=== PATIENT | female | born 1945 | race Caucasian/White ===

== ENCOUNTER → 2018-05-15 07:19 | Outpatient (CLI) | payer MEDICARE, SELFPAY ==
[2018-05-15 09:21] LABS: Blood Urea Nitrogen 24 mg/dL (7-17); Calcium 9.8 mg/dL (8.4-10.2); Carbon Dioxide 29 mmol/L (22-32); Chloride 105 mmol/L (98-107); Cholesterol 248 mg/dL (140-199); Estimated Glomerular Filt Rate > 60.0 mL/min (>60); Glucose 89 mg/dL (80-110); HDL Cholesterol 79 mg/dL (40-60); HEMOLYSIS < 15 (0-50); LDL Cholesterol Calculated 152 mg/dL (<100); Potassium 4.4 mmol/L (3.4-5.1); Sodium 143 mmol/L (137-145); Triglycerides 87 mg/dL (35-150)
[2018-05-15 09:52] LABS: Vitamin D 25 Hydroxy (D3) 47.3 ng/mL (30.0-100.0)
[2018-05-15 10:08] LABS: TSH w/ Reflex to FT4 1.78 uIU/mL (0.47-4.68)
== END ==
PROVIDERS: PCP Internal Medicine; Visit Provider Internal Medicine
DX: M85.9 Disorder of bone density and structure, unspecified (principal); E03.9 Hypothyroidism, unspecified; I10 Essential (primary) hypertension; E78.00 Pure hypercholesterolemia, unspecified
CPT/HCPCS: 36415; 80048; 80061; 82306; 84443

== ENCOUNTER → 2018-10-30 11:57 | Outpatient (CLI) | payer MEDICARE, SELFPAY ==
--- NOTE | 2018-10-30 | DI.MG.S_ITS ---
BILATERAL DIGITAL SCREENING MAMMOGRAM 3D/2D WITH CAD: 10/30/2018 CLINICAL: Routine screening. Comparison is made to exams dated: 10/22/2017 mammogram, 09/19/2016 mammogram, 08/23/2015 mammogram, and 07/03/2012 mammogram - [facility]. The tissue of both breasts is heterogeneously dense. This may lower the sensitivity of mammography. Current study was also evaluated with a Computer Aided Detection (CAD) system. There are benign calcifications in both breasts. No significant masses, calcifications, or other findings are seen in either breast. There has been no significant interval change. IMPRESSION: There is no mammographic evidence of malignancy. A 1 year screening mammogram is recommended. This exam was interpreted at Station ID: [id number]. NOTE: For mammograms, a report in lay terms will be sent to the patient. Approximately 15% of breast malignancies will not be visualized mammographically. In the management of a palpable breast mass, a negative mammogram must not discourage biopsy of a clinically suspicious lesion. Electronically Signed By: Fito becker/[email or web address]:10/30/2018 13:39:34 letter sent: Normal Exam ACR BI-RADS Category 2: Benign Finding(s) 3342F
== END ==
PROVIDERS: PCP Internal Medicine; Visit Provider Internal Medicine
DX: Z12.31 Encounter for screening mammogram for malignant neoplasm of breast (principal)
CPT/HCPCS: 77063; 77067

== ENCOUNTER → 2019-07-25 06:41 | Outpatient (CLI) | payer MEDICARE, SELFPAY ==
[2019-07-25 08:31] LABS: BUN Creatinine Ratio 25.6 (6-22); Blood Urea Nitrogen 23 mg/dL (7-17); Calcium 9.7 mg/dL (8.4-10.2); Carbon Dioxide 28 mmol/L (22-32); Chloride 107 mmol/L (98-107); Cholesterol 242 mg/dL (140-199); Estimated Glomerular Filt Rate > 60.0 mL/min (>60); Glucose 90 mg/dL (80-110); HDL Cholesterol 74 mg/dL (40-60); HEMOLYSIS < 15 (0-50); LDL Cholesterol Calculated 147 mg/dL (<100); Potassium 4.2 mmol/L (3.4-5.1); Sodium 142 mmol/L (137-145); Triglycerides 107 mg/dL (35-150)
[2019-07-25 09:38] LABS: TSH w/ Reflex to FT4 1.62 uIU/mL (0.47-4.68)
== END ==
PROVIDERS: PCP Internal Medicine; Visit Provider Internal Medicine
DX: E78.00 Pure hypercholesterolemia, unspecified (principal); E03.9 Hypothyroidism, unspecified; I10 Essential (primary) hypertension
CPT/HCPCS: 36415; 80048; 80061; 84443

== ENCOUNTER → 2019-07-25 06:45 | Outpatient (CLI) | payer MEDICARE, SELFPAY | PROVIDERS: PCP Internal Medicine; Visit Provider Internal Medicine | DX: M85.9 Disorder of bone density and structure, unspecified (principal); Z53.9 Procedure and treatment not carried out, unspecified reason ==

== ENCOUNTER → 2020-11-20 10:29 | Outpatient (CLI) | payer OTHER, SELFPAY ==
--- NOTE | 2020-11-20 | DI.MG.S_ITS ---
BILATERAL DIGITAL SCREENING MAMMOGRAM 3D/2D WITH CAD: 11/20/2020 CLINICAL: Routine screening. Comparison is made to exams dated: 10/30/2018 mammogram, 10/22/2017 mammogram, 09/19/2016 mammogram, and 08/23/2015 mammogram - [facility]. The tissue of both breasts is heterogeneously dense. This may lower the sensitivity of mammography. Current study was also evaluated with a Computer Aided Detection (CAD) system. There are benign calcifications in both breasts. There also are benign vascular calcifications in both breasts. No significant masses, calcifications, or other findings are seen in either breast. There has been no significant interval change. IMPRESSION: BENIGN There is no mammographic evidence of malignancy. A 1 year screening mammogram is recommended. This exam was interpreted at Station ID: [id number]. NOTE: For mammograms, a report in lay terms will be sent to the patient. Approximately 15% of breast malignancies will not be visualized mammographically. In the management of a palpable breast mass, a negative mammogram must not discourage biopsy of a clinically suspicious lesion. Electronically Signed By: Elder [email or web address]/[email or web address]:11/22/2020 08:25:32 letter sent: Normal Exam ACR BI-RADS Category 2: Benign Finding(s) 3342F
== END ==
PROVIDERS: PCP Internal Medicine; Referring Provider Internal Medicine; Visit Provider Internal Medicine
DX: Z12.31 Encounter for screening mammogram for malignant neoplasm of breast (principal)
CPT/HCPCS: 77063; 77067

== ENCOUNTER → 2021-03-23 11:05 | Outpatient (CLI) | payer OTHER, SELFPAY | PROVIDERS: PCP Student in an Organized Health Care Education/Training Program; Referring Provider Student in an Organized Health Care Education/Training Program; Visit Provider Student in an Organized Health Care Education/Training Program | DX: Z78.0 Asymptomatic menopausal state (principal); M85.852 Other specified disorders of bone density and structure, left thigh; E07.9 Disorder of thyroid, unspecified; Z90.722 Acquired absence of ovaries, bilateral | CPT/HCPCS: 77080 ==

== ENCOUNTER → 2021-10-21 15:35 | Outpatient (CLI) | payer OTHER, SELFPAY ==
--- NOTE | 2021-10-21 15:37 | DI.MRI.S_ITS ---
PROCEDURE: MR KNEE RT WO CON INDICATIONS: Pain in right knee TECHNIQUE: Noncontrast sagittal PD fast spin echo and T2 fast spin echo with fat saturation, sagittal 3-D FLASH with fat saturation; coronal T1 spin echo and PD fast spin echo with fat saturation, and axial PD fast spin echo with fat saturation through the knee. COMPARISON: [facility], MR, KNEE WITHOUT CONTRAST, 04/16/2015, 13:01. FINDINGS: Image quality: Excellent. Menisci: Medial extrusion of the medial meniscus. Radial tearing of the posterior horn medial meniscus at the meniscal root ligament insertion site. Linear oblique high T2 signal intensity traverses the medial meniscal body, demonstrating inferior articular surface extension. Lateral meniscus is intact. Cruciate ligaments: The anterior and posterior cruciate ligaments appear intact. Medial structures: The medial collateral ligament appears intact. Visualized portions of the pes anserinus tendons appear normal. No abnormal bursal fluid. Lateral structures: The lateral collateral ligament, long and short heads of the biceps femoris tendon appear intact. The popliteus tendon appears normal. Iliotibial band appears normal. Anterior structures: The quadriceps and patellar tendons appear intact. Patellar alignment is normal. No femoral trochlear dysplasia or ventral trochlear prominence. No edema in the infrapatellar fat pad. Bones and cartilage: No bone marrow contusions or fractures. Moderate tricompartmental periarticular osteophyte formation. Severe articular cartilage loss diffusely overlies the weight-bearing aspects of the medial femoral condyle and medial tibial plateau. Mild articular cartilage loss diffusely overlies the weight-bearing aspects of the lateral femoral condyle and lateral tibial plateau. Moderate articular cartilage loss overlies the medial and lateral patellar facets. Joint space: There is a small knee joint effusion and a small Pascal's cyst. Normal appearing synovial plicae are incidentally noted. IMPRESSION: 1. Tricompartmental osteoarthritis with associated articular cartilage loss. 2. Medial meniscal tearing. 3. Knee joint effusion and Pascal's cyst. Dictated by: April Casey M.D. on 10/21/2021 at 16:33 Approved by: April Casey M.D. on 10/21/2021 at 16:36
== END ==
PROVIDERS: PCP Student in an Organized Health Care Education/Training Program; Referring Provider Orthopaedic Surgery; Visit Provider Orthopaedic Surgery
DX: M25.561 Pain in right knee (principal); M17.11 Unilateral primary osteoarthritis, right knee; S83.241A Other tear of medial meniscus, current injury, right knee, initial encounter; M25.461 Effusion, right knee; M71.21 Synovial cyst of popliteal space [Baker], right knee
CPT/HCPCS: 73721

== ENCOUNTER → 2022-01-25 11:49 | Outpatient (CLI) | payer OTHER, SELFPAY ==
--- NOTE | 2022-01-25 11:51 | DI.RAD.S_ITS ---
PROCEDURE: XR LUMBAR SPINE MIN 4V INDICATIONS: LBP with left leg pain TECHNIQUE: 5 views of the lumbar spine were acquired, including bilateral oblique views. COMPARISON: None. FINDINGS: Bones: 5 nonrib-bearing vertebrae are present. There is 4 mm retrolisthesis of L1 on L2 and 4 mm anterolisthesis of L4 on L5. [id number] levoscoliosis of thoracolumbar spine centered at L2 level is seen. Degenerative endplate changes and bilateral facet arthrosis throughout lumbar spine is seen. No vertebral body compression fractures. No suspicious bony lesions. Soft tissues: Overlying bowel gas pattern is normal. No suspicious soft tissue calcifications. Oblique images: No pars defects. IMPRESSION: No acute lumbar spine compression fracture. Grade 1 spondylolisthesis at L1-2 and L4-5 levels as above. No gross pars defect. Degenerative disc disease throughout lumbar spine. Mild to moderate levoscoliosis of thoracolumbar spine centered at L2 level. Dictated by: Clyde Villanueva M.D. on 01/25/2022 at 14:13 Approved by: Clyde Villanueva M.D. on 01/25/2022 at 14:15
== END ==
PROVIDERS: PCP Student in an Organized Health Care Education/Training Program; Referring Provider Physical Medicine & Rehabilitation; Visit Provider Physical Medicine & Rehabilitation
DX: M54.16 Radiculopathy, lumbar region (principal); M70.62 Trochanteric bursitis, left hip; M43.16 Spondylolisthesis, lumbar region; M51.36 Other intervertebral disc degeneration, lumbar region; M41.86 Other forms of scoliosis, lumbar region
CPT/HCPCS: 72110; 99213

== ENCOUNTER 2022-02-16 19:07 | Emergency (ER) | payer OTHER, SELFPAY ==
[2022-02-16] VITALS (8 sets, daily range): BP systolic 119–153; BP diastolic 58–70; PULSE 75–87; RESP 16–22; TEMP 36.5–37.1; O2SAT 94–99; BMI 21.2
--- NOTE | 2022-02-16 19:34 | DI.RAD.S_ITS ---
PROCEDURE: XR CHEST 1V INDICATIONS: chest pain TECHNIQUE: One view of the chest was acquired. COMPARISON: None. FINDINGS: Surgical changes and devices: None. Lungs and pleura: Lungs are clear. There is hyperinflation of the lungs with mild flattening of the hemidiaphragms suggestive of COPD. No pleural effusions or pneumothorax. Mediastinum: Mediastinal contours appear normal. Heart size is normal. Bones and chest wall: No suspicious bony lesions. Overlying soft tissues appear unremarkable. IMPRESSION: 1. No acute cardiopulmonary disease. 2. Findings suggestive of COPD. Dictated by: Jerel Yusuf M.D. on 02/16/2022 at 21:10 Approved by: Jerel Yusuf M.D. on 02/16/2022 at 21:12
[2022-02-16 20:03] LABS: Add Manual Diff / Slide Review NO; Basophils Absolute Auto 100 /uL (0-100); Basophils Percent Auto 0.8 % (0-2); Eosinophils Absolute Auto 200 /uL (0-450); Eosinophils Percent Auto 1.2 % (2-4); Hemoglobin 10.8 g/dL (12.0-16.0); Lymphocytes Absolute Auto 1800 /uL (1100-4500); Mean Corpuscular HGB Conc 33.8 % (30-36); Mean Corpuscular Hemoglobin 33.6 PG (26-34); Mean Corpuscular Volume 99.3 fL (80-100); Monocytes Absolute Auto 900 /uL (0-900); Monocytes Percent Auto 6.9 % (3-14); Neutrophils Absolute Auto 9900 /uL (1500-7000); Neutrophils Percent Auto 77.1 % (50-75); Platelet Count 282 X10^3/uL (150-400); Red Blood Cell Count 3.22 X10^6/uL (4.0-5.2); Red Cell Distribution Width 13.5 % (11.6-14.8); White Blood Cell Count 12.8 X10^3/uL (4.5-11.0)
[2022-02-16 20:08] LABS: Alanine Aminotransferase 22 IU/L (<35); Albumin Globulin Ratio 1.7 (1.0-2.8); Alkaline Phosphatase 61 U/L (38-126); Aspartate Aminotransferase 26 IU/L (14-36); BUN Creatinine Ratio 47.8 (6-22); Bilirubin Total 0.4 mg/dL (0.2-1.3); Blood Urea Nitrogen 44 mg/dL (7-17); Calcium 10.1 mg/dL (8.4-10.2); Carbon Dioxide 29 mmol/L (22-32); Chloride 104 mmol/L (98-107); Creatine Kinase 82 U/L (30-135); Estimated Glomerular Filt Rate > 60 mL/min (>60); Globulin 2.4 g/dL (1.7-4.1); Glucose 136 mg/dL (80-110); HEMOLYSIS < 15 (0-50); Lipase 118 U/L (23-300); Sodium 138 mmol/L (137-145); Total Protein 6.4 g/dL (6.3-8.2)
--- NOTE | 2022-02-16 20:14 | DI.CT.S_ITS ---
PROCEDURE: CT HEAD/BRAIN WO CON INDICATIONS: syncope vs seizure TECHNIQUE: Noncontrast 4.5 mm thick angled axial sections acquired from the foramen magnum to the vertex, with coronal and sagittal reformats. For radiation dose reduction, the following was used: automated exposure control, adjustment of mA and/or kV according to patient size. COMPARISON: None. FINDINGS: Image quality: Excellent. CSF spaces: Basal cisterns are patent. No extra-axial fluid collections. There is mild to moderate cerebral volume loss, with resultant ventricular and sulcal prominence as well as prominence of the frontal extra-axial spaces. Brain: No intracranial hemorrhage, mass, or mass effect. There are subcortical, periventricular and deep white matter hypodensities consistent with mild chronic small vessel ischemic changes. The bragg-white matter junction appears preserved. There is intracranial internal carotid artery atherosclerosis. Skull and face: Calvarium and visualized facial bones appear intact, without suspicious lesions. Sinuses: Visualized sinuses and mastoids are clear. IMPRESSION: 1. No acute intracranial abnormality. 2. Mild to moderate cerebral volume loss and mild chronic white matter small vessel ischemic changes. Dictated by: Jerel Yusuf M.D. on 02/16/2022 at 20:59 Approved by: Jerel Yusuf M.D. on 02/16/2022 at 21:00
--- NOTE | 2022-02-16 20:16 | ED_ITS ---
HPI - Syncope General Chief Complaint: Syncope Stated Complaint: thinks having a stroke Time Seen by Provider: 02/16/22 19:52 Source: patient and family Mode of arrival: Wheelchair Limitations: no limitations History of Present Illness HPI narrative: This is a 76-year-old female history of hypothyroidism, dyslipidemia and hypertension who presents with feeling unwell today and an episode of altered mental status. Patient states she just was not feeling well today she would recently been started on meloxicam she stopped this she took a Gas-X and Neda- [place] because she is feeling nauseated. She states they were returning with her and their private vehicle while driving back from [place] patient felt very warm, she was not diaphoretic and she had an episode where she is described as having her right arm kind of go upwards and her left arm sitting down her states she was stiff for a 2nd and then sort of lost tone and consciousness he states a couple seconds of the stiffness and then loss of tone for about 1 minute. Patient states that she was slightly confused immediately afterwards but quickly improved. She describes her vision has been blurry she does state that there was loss of time for about a minute or 2 that she does not recall. Episode occurred around 1830 this evening. She denies any headache, no numbness, tingling or weakness, no facial droop, no speech changes. No fevers or chills. She has not had any vomiting today. No chest pain or pressure, no shortness of breath. She would discomfort across her upper abdomen which resolved. She denies diarrhea constipation. No urinary symptoms. No bowel or bladder incontinence. She has not had similar symptoms in the past. She takes medication for her thyroid, hypertension dyslipidemia. She had a hysterectomy in 1998. Allergic to sulfa. No tobacco, she drinks 1 martini a small amount of wine nightly, no illicit. She lives with her . She denies any cardiac, neurologic, seizure or arrhythmia issues in her family. Primary care was Dr. Alice Marshall. Related Data Home Medications Medication Instructions Recorded Confirmed cholecalciferol (vitamin D3) 1 tab PO BID 04/18/21 10/19/21 levothyroxine 88 mcg tablet 88 mcg PO DAILY 04/18/21 10/19/21 lisinopril 5 mg tablet 5 mg PO DAILY 04/18/21 10/19/21 omega-3 fatty acids [Fish Oil 1 cap PO DAILY 04/18/21 10/19/21 Concentrate] ibuprofen 200 mg capsule 200 mg PO Q6H PRN 10/19/21 01/25/22 atorvastatin 20 mg tablet 20 mg PO BEDTIME 01/25/22 Previous Rx's Medication Instructions Recorded meloxicam 15 mg tablet 15 mg PO DAILY #30 tabs 01/25/22 cephalexin 500 mg capsule 500 mg PO BID #10 caps 02/16/22 Allergies Allergy/AdvReac Type Severity Reaction Status Date / Time adhesive [ADHESIVE] Allergy Unknown skin Verified 01/25/22 09:08 becomes red and itchy Sulfa (Sulfonamide Allergy Unknown rash,ithching, Verified 01/25/22 09:08 Antibiotics) redness [SULFA (SULFONAMIDE ANTIBIOTICS)] Review of Systems Review of Systems ROS Unobtainable: All systems reviewed & are unremarkable except as noted in HPI and below Patient History Medical History Lumbar back pain with radiculopathy affecting left lower extremity Trochanteric bursitis of left hip Surgical History H/O section H/O right wrist surgery Social History number of children: 2 Smoking Status: Never smoker alcohol intake: current Smoking Status: Never smoker Substance Use Type: does not use Exam Narrative Exam Narrative: GEN: well nourished, well appearing female, alert and oriented x 3, patient appears to be in no acute distress. HEENT: Atraumatic, pupils are equal round reactive to light, extraocular movements are intact, nares are clear. Throat is clear without any exudates, erythema, tonsillar enlargement or uvular deviation mild, no facial droop. HEART: Regular rate and rhythm without murmur, clicks, rubs. No carotid bruits, pulses are equal in upper and lower extremities LUNGS:Lungs clear to auscultation, no wheezes, rales, crackles, chest moves symmetrically ABD:bowel sounds normal, soft, non-tender, no guarding, rebound, rigidity, no masses noted, no hepatosplenomegaly :No CVA tenderness MSCL: Non-tender, no muscle atrophy, muscles strength 5/5 upper and lower extremities, full range of motion, normal gait NEURO:CN 2-12 intact, sensation normal, reflexes 2/4 upper and lower extremities. finger nose finger test normal, heel stevens test normal, romberg normal SKIN: No rash, erythema or other skin changes Initial Vital Signs Initial Vital Signs: Vital Signs Pulse Rate 75 02/16/22 19:17 Respiratory Rate 21 02/16/22 19:17 Pulse Oximetry 96 02/16/22 19:17 Scores NIH Stroke Scale Level of Conciousness: Alert, keenly responsive Ask month/age: Answers both questions correctly. Open/close eyes, close hand: Performs both tasks correctly Best gaze horizontal: Normal Visual simons: No visual loss Facial palsy: Normal symetrical movement Left arm drift: No drift for full 10 sec Right arm drift: No drift for full 10 sec Left leg drift: No drift for full 5 sec Right leg drift: No drift for full 5 sec Limb ataxia: Absent Sensory on face/arms/legs: Normal, no sensory loss Best language: No aphasia, normal Dysarthria: Normal Extinction or inattention: No abnormality Total NIH Stroke scale score: 0 Course Orders Ordered: Discontinued Medications Sodium Chloride (Normal Saline 0.9%) 1,000 mls @ 1,000 mls/hr IV BOLUS ONE Stop: 02/16/22 21:13 Last Infusion: 02/16/22 22:18 Dose: 0 mls/hr Documented By: Admin: 02/16/22 20:39 Dose: 1,000 mls/hr Documented By: DESIRAE Reevaluation(s) Reevaluation #1: Recheck, patient and I reviewed findings from today. Plan for follow up ou tpatient for work up. Patient feels back at her normal state. Vital Signs Vital signs: Vital Signs - 8 hr 02/16/22 19:23 Temperature 97.7 F Pulse Rate 87 Respiratory Rate 17 Blood Pressure 137/62 Pulse Oximetry 98 Oxygen Delivery Method Room Air MDM - Syncope Lab Data Result diagrams: 02/16/22 19:49 02/16/22 19:49 Labs: Lab Results 02/16/22 02/16/22 02/16/22 Range/Units 19:49 19:49 19:49 WBC 12.8 H (4.5-11.0) X10^3/uL RBC 3.22 L (4.0-5.2) X10^6/uL Hgb 10.8 L (12.0-16.0) g/dL Hct 32.0 L (36-46) % MCV 99.3 (80-100) fL MCH 33.6 (26-34) PG MCHC 33.8 (30-36) % RDW 13.5 (11.6-14.8) % Plt Count 282 (150-400) X10^3/uL Neut % (Auto) 77.1 H (50-75) % Lymph % (Auto) 14.0 L (25-40) % Mohave % (Auto) 6.9 (3-14) % Eos % (Auto) 1.2 L (2-4) % Baso % (Auto) 0.8 (0-2) % Neut # (Auto) 9900 H (1158-7835) /uL Lymph # (Auto) 1800 (5148-8487) /uL Mohave # (Auto) 900 (0-900) /uL Eos # (Auto) 200 (0-450) /uL Baso # (Auto) 100 (0-100) /uL Sodium 138 (137-145) mmol/L Potassium 4.0 (3.4-5.1) mmol/L Chloride 104 (98-107) mmol/L Carbon Dioxide 29 (22-32) mmol/L BUN 44 H (7-17) mg/dL Creatinine 0.92 (0.52-1.04) mg/dL Estimated GFR > 60 (>60) mL/min BUN/Creatinine Ratio 47.8 H (6-22) Glucose 136 H (80-110) mg/dL Calcium 10.1 (8.4-10.2) mg/dL Magnesium 2.0 (1.6-2.3) mg/dL Total Bilirubin 0.4 (0.2-1.3) mg/dL AST 26 (14-36) IU/L ALT 22 (<35) IU/L Alkaline Phosphatase 61 (38-126) U/L Total Creatine Kinase 82 (30-135) U/L CK-MB (CK-2) TNP CK-MB (CK-2) Rel Index TNP Troponin I < 0.012 (0.01-0.034) ng/mL Total Protein 6.4 (6.3-8.2) g/dL Albumin 4.0 (3.5-5.0) g/dL Globulin 2.4 (1.7-4.1) g/dL Albumin/Globulin Ratio 1.7 (1.0-2.8) Lipase 118 (23-300) U/L TSH 1.58 (0.47-4.68) uIU/mL Prolactin (3.0-18.6) ng/mL Urine Color Urine Appearance Urine pH (4.5-8.0) Ur Specific Hubbard (1.000-1.035) Urine Protein (Negative) Urine Glucose (UA) (Negative) g/dL Urine Ketones (NEGATIVE) Urine Occult Blood (Negative) Urine Nitrate (Negative) Urine Bilirubin (NEGATIVE) Urine Urobilinogen (0.2) E.U./dL Ur Leukocyte Esterase (NEGATIVE) Urine RBC (0-5/HPF) Urine WBC (0-5/HPF) Amorphous Sediment Urine Bacteria (None) Ur Culture Indicated? U Opiates 300ng/mL cut (Negative) Ur Oxycodone Screen (Negative) Urine Methadone Screen (Negative) Ur Barbiturates Screen (Negative) U Tricyclic Antidepress (Negative) Ur Phencyclidine Scrn (Negative) Ur Amphetamines Screen (Negative) U Methamphetamines Scrn (Negative) Ur MDMA Scrn (Ecstasy) (Negative) U Benzodiazepines Scrn (Negative) Urine Cocaine Screen (Negative) U Marijuana (THC) Screen (Negative) Ethyl Alcohol ( - 10) mg/dL SARS-CoV-2 (PCR) (Negative) 02/16/22 02/16/22 02/16/22 Range/Units 19:49 19:49 19:57 WBC (4.5-11.0) X10^3/uL RBC (4.0-5.2) X10^6/uL Hgb (12.0-16.0) g/dL Hct (36-46) % MCV (80-100) fL MCH (26-34) PG MCHC (30-36) % RDW (11.6-14.8) % Plt Count (150-400) X10^3/uL Neut % (Auto) (50-75) % Lymph % (Auto) (25-40) % Mohave % (Auto) (3-14) % Eos % (Auto) (2-4) % Baso % (Auto) (0-2) % Neut # (Auto) (8381-2463) /uL Lymph # (Auto) (3585-1924) /uL Mohave # (Auto) (0-900) /uL Eos # (Auto) (0-450) /uL Baso # (Auto) (0-100) /uL Sodium (137-145) mmol/L Potassium (3.4-5.1) mmol/L Chloride (98-107) mmol/L Carbon Dioxide (22-32) mmol/L BUN (7-17) mg/dL Creatinine (0.52-1.04) mg/dL Estimated GFR (>60) mL/min BUN/Creatinine Ratio (6-22) Glucose (80-110) mg/dL Calcium (8.4-10.2) mg/dL Magnesium (1.6-2.3) mg/dL Total Bilirubin (0.2-1.3) mg/dL AST (14-36) IU/L ALT (<35) IU/L Alkaline Phosphatase (38-126) U/L Total Creatine Kinase (30-135) U/L CK-MB (CK-2) CK-MB (CK-2) Rel Index Troponin I (0.01-0.034) ng/mL Total Protein (6.3-8.2) g/dL Albumin (3.5-5.0) g/dL Globulin (1.7-4.1) g/dL Albumin/Globulin Ratio (1.0-2.8) Lipase (23-300) U/L TSH (0.47-4.68) uIU/mL Prolactin 41.2 H (3.0-18.6) ng/mL Urine Color Urine Appearance Urine pH (4.5-8.0) Ur Specific Hubbard (1.000-1.035) Urine Protein (Negative) Urine Glucose (UA) (Negative) g/dL Urine Ketones (NEGATIVE) Urine Occult Blood (Negative) Urine Nitrate (Negative) Urine Bilirubin (NEGATIVE) Urine Urobilinogen (0.2) E.U./dL Ur Leukocyte Esterase (NEGATIVE) Urine RBC (0-5/HPF) Urine WBC (0-5/HPF) Amorphous Sediment Urine Bacteria (None) Ur Culture Indicated? U Opiates 300ng/mL cut (Negative) Ur Oxycodone Screen (Negative) Urine Methadone Screen (Negative) Ur Barbiturates Screen (Negative) U Tricyclic Antidepress (Negative) Ur Phencyclidine Scrn (Negative) Ur Amphetamines Screen (Negative) U Methamphetamines Scrn (Negative) Ur MDMA Scrn (Ecstasy) (Negative) U Benzodiazepines Scrn (Negative) Urine Cocaine Screen (Negative) U Marijuana (THC) Screen (Negative) Ethyl Alcohol < 10 ( - 10) mg/dL SARS-CoV-2 (PCR) Negative (Negative) 02/16/22 02/16/22 Range/Units 22:00 22:00 WBC (4.5-11.0) X10^3/uL RBC (4.0-5.2) X10^6/uL Hgb (12.0-16.0) g/dL Hct (36-46) % MCV (80-100) fL MCH (26-34) PG MCHC (30-36) % RDW (11.6-14.8) % Plt Count (150-400) X10^3/uL Neut % (Auto) (50-75) % Lymph % (Auto) (25-40) % Mohave % (Auto) (3-14) % Eos % (Auto) (2-4) % Baso % (Auto) (0-2) % Neut # (Auto) (7821-7175) /uL Lymph # (Auto) (1283-2950) /uL Mohave # (Auto) (0-900) /uL Eos # (Auto) (0-450) /uL Baso # (Auto) (0-100) /uL Sodium (137-145) mmol/L Potassium (3.4-5.1) mmol/L Chloride (98-107) mmol/L Carbon Dioxide (22-32) mmol/L BUN (7-17) mg/dL Creatinine (0.52-1.04) mg/dL Estimated GFR (>60) mL/min BUN/Creatinine Ratio (6-22) Glucose (80-110) mg/dL Calcium (8.4-10.2) mg/dL Magnesium (1.6-2.3) mg/dL Total Bilirubin (0.2-1.3) mg/dL AST (14-36) IU/L ALT (<35) IU/L Alkaline Phosphatase (38-126) U/L Total Creatine Kinase (30-135) U/L CK-MB (CK-2) CK-MB (CK-2) Rel Index Troponin I (0.01-0.034) ng/mL Total Protein (6.3-8.2) g/dL Albumin (3.5-5.0) g/dL Globulin (1.7-4.1) g/dL Albumin/Globulin Ratio (1.0-2.8) Lipase (23-300) U/L TSH (0.47-4.68) uIU/mL Prolactin (3.0-18.6) ng/mL Urine Color Yellow Urine Appearance Clear Urine pH 7.0 (4.5-8.0) Ur Specific Hubbard 1.010 (1.000-1.035) Urine Protein Negative (Negative) Urine Glucose (UA) Negative (Negative) g/dL Urine Ketones Trace H (NEGATIVE) Urine Occult Blood Trace-intact (Negative) Urine Nitrate Negative (Negative) Urine Bilirubin Negative (NEGATIVE) Urine Urobilinogen 0.2 (0.2) E.U./dL Ur Leukocyte Esterase 2+ H (NEGATIVE) Urine RBC 1-5/hpf (0-5/HPF) Urine WBC 5-10/hpf H (0-5/HPF) Amorphous Sediment 2+ Urine Bacteria Occasional (0-1) (None) Ur Culture Indicated? Specimen cultured U Opiates 300ng/mL cut Negative (Negative) Ur Oxycodone Screen Negative (Negative) Urine Methadone Screen Negative (Negative) Ur Barbiturates Screen Negative (Negative) U Tricyclic Antidepress Negative (Negative) Ur Phencyclidine Scrn Negative (Negative) Ur Amphetamines Screen Negative (Negative) U Methamphetamines Scrn Negative (Negative) Ur MDMA Scrn (Ecstasy) Negative (Negative) U Benzodiazepines Scrn Negative (Negative) Urine Cocaine Screen Negative (Negative) U Marijuana (THC) Screen Negative (Negative) Ethyl Alcohol ( - 10) mg/dL SARS-CoV-2 (PCR) (Negative) Imaging Data CT scan - head: Radiologist's Impression: Nicolle Mcnair V??76??F??1945 ? Allergy/Adv: adhesive, Sulfa (Sulfonamide Antibiotics) (More??) Close Head CT (Signed) Jerel Yusuf - 02/16/22 Chest X-Ray (Signed) Jerel Yusuf - 02/16/22 Lumbar Spine X-Ray (Signed) Clyde Villanueva - 01/25/22 Knee MRI (Signed) April Casey - 10/21/21 Bone Densitometry 03/23/21 Mammogram Screening (Signed) Lionel Kirklandwn - 11/20/20 Mammogram Screening (Signed) Fito Joseph - 10/30/18 Launch?[place] [address] CT Scan Report Signed Patient: Nicolle Mcnair V MR#: [id number] : 1945 Acct:[id number] Age/Sex: 76 / F Date of Service: 02/16/22 Loc: ED Accession Number: [id number] ?? Procedure: CT head/brain wo con Ordering Provider: Hilda Muniz D.O. PROCEDURE:? CT HEAD/BRAIN WO CON ? INDICATIONS:? syncope vs seizure ? TECHNIQUE:? Noncontrast 4.5 mm thick angled axial sections acquired from the foramen magnum to the vertex, with coronal and sagittal reformats.? For radiation dose reduction, the following was used:? automated exposure control, adjustment of mA and/or kV according to patient size.? ? COMPARISON:? None. ? FINDINGS:? Image quality:? Excellent.? ? CSF spaces:? Basal cisterns are patent.? No extra-axial fluid collections.? There is mild to moderate cerebral volume loss, with resultant ventricular and sulcal prominence as well as prominence of the frontal extra-axial spaces.? ? Brain:? No intracranial hemorrhage, mass, or mass effect.? There are subcortical, periventricular and deep white matter hypodensities consistent with mild chronic small vessel ischemic changes.? The bragg-white matter junction appears preserved.? There is intracranial internal carotid artery atherosclerosis.? ? Skull and face:? Calvarium and visualized facial bones appear intact, without suspicious lesions.? ? Sinuses:? Visualized sinuses and mastoids are clear.? ? IMPRESSION:? ? 1. No acute intracranial abnormality. ? 2. Mild to moderate cerebral volume loss and mild chronic white matter small vessel ischemic changes.? ? ? Dictated by: Jerel Yusuf M.D. on 02/16/2022 at 20:59 ? ? Approved by: Jerel Yusuf M.D. on 02/16/2022 at 21:00?? Chest x-ray: Radiologist's Impression: Close Head CT (Signed) Jerel Yusuf - 02/16/22 Chest X-Ray (Signed) Jerel Yusuf - 02/16/22 Lumbar Spine X-Ray (Signed) Clyde Villanueva - 01/25/22 Knee MRI (Signed) April Casey - 10/21/21 Bone Densitometry 03/23/21 Mammogram Screening (Signed) Elder Kirkland - 11/20/20 Mammogram Screening (Signed) Fito Joseph - 10/30/18 [place] [address] XRay Report Signed Patient: Nicolle Mcnair V MR#: [id number] : 1945 Acct:[id number] Age/Sex: 76 / F Date of Service: 02/16/22 Loc: ED Accession Number: [id number] ?? Procedure: XR chest 1V Ordering Provider: Hilda Muniz D.O. PROCEDURE:? XR CHEST 1V ? INDICATIONS:? chest pain ? TECHNIQUE:? One view of the chest was acquired.? ? COMPARISON:? None. ? FINDINGS:? ? Surgical changes and devices:? None.? ? Lungs and pleura:? Lungs are clear. There is hyperinflation of the lungs with mild flattening of the hemidiaphragms suggestive of COPD. ? No pleural effusions or pneumothorax.? ? Mediastinum:? Mediastinal contours appear normal.? Heart size is normal.? ? Bones and chest wall:? No suspicious bony lesions.? Overlying soft tissues appear unremarkable.? ? IMPRESSION:? ? 1. No acute cardiopulmonary disease. ? 2. Findings suggestive of COPD.? ? ? Dictated by: Jerel Yusuf M.D. on 02/16/2022 at 21:10 ? ? Approved by: Jerel Yusuf M.D. on 02/16/2022 at 21:12?? ECG Data Attestation: I personally reviewed and interpreted this ECG as follows: Interpretation: Sinus rhythm with sinus arrhythmia rate of 70 2p are 204 QRS is [address]TC [address] No acute [address] elevation depression noted. Patient does not have priors for comparison. MDM Narrative Medical decision making narrative: This is a 76-year-old female who comes with generally feeling unwell, episode of syncope versus possible seizure she according to her extend her arm was defer come a 2nd and then sort of lost tone. Patient does appear to be dehydrated by her labs her BUN is elevated but renal function, electrolytes, troponin are all normal. Head CT was obtained is negative, chest x-ray shows no acute change. Patient does have a leukocytosis of 12, anemia of 10 her prior from 2017 and was 13. Patient's vitals have been appropriate here. She is COVID negative and does have an elevated prolactin. At this time recommend patient follow-up patient with no driving and seizure precautions until cleared by her physician and potentially Neurology after additional workup. She does have an elevated BUN and ketones on her urine for reflecting possible d ehydration but no bump in her creatinine. She has leuks in her urine no active symptoms but was covered with an antibiotic. Discussed with patient I suspect more syncopal episode over seizure-like activity but seizure precautions were given and recommended to follow-up. Patient and are both comfortable with this plan. Reviewed seizure precautions with them verbally as well. Discharge Plan Departure Patient Disposition: Home Clinical Impression: Syncope, Acute UTI Instructions: DI for Syncope in Adults (Fainting) Activity Restrictions/Additional Instructions: Follow up with your physician for recheck this week. I would not recommend driving until you follow up with your physician. I suspect that you had more of a syncopal episode today secondary to dehydration and infection in your urine but some of the symptoms described could potentially be seizure and they may have you follow-up with a neurologist. Your labs do reflect dehydration today, your urine is also suspicious for infection and you have been prescribed an antibiotic. Make sure you are hydrating regularly. Your prescription was sent to [facility] in [place]. You may continue home medications as prescribed. Please return for fevers, recurrent episodes of passing out, altered mental status, shaking, seizure-like activity, persistent vomiting or other new or concerning symptoms. Prescriptions: New cephalexin 500 mg capsule 500 mg PO BID Qty: 10 0RF No Action lisinopril 5 mg tablet 5 mg PO DAILY levothyroxine 88 mcg tablet 88 mcg PO DAILY cholecalciferol (vitamin D3) 1 tab PO BID omega-3 fatty acids [Fish Oil Concentrate] 1 cap PO DAILY ibuprofen 200 mg capsule 200 mg PO Q6H PRN Hold Instructions: Home Medication placed on hold at Doctor's office atorvastatin 20 mg tablet 20 mg PO BEDTIME meloxicam 15 mg tablet 15 mg PO DAILY Qty: 30 2RF Referrals: Alice Marshall MD [Primary Care Provider] - Visit Report Forms: Patient Portal/API
[2022-02-16 20:20] LABS: Troponin I < 0.012 ng/mL (0.01-0.034)
[2022-02-16 20:25] LABS: COVID19 -Nasal RAPID Negative (Negative)
[2022-02-16 20:35] LABS: Ethanol (ETOH) < 10 mg/dL
[2022-02-16] MEDS: SODIUM CHLORIDE 0.9% 1,000 ML 1000 ML IV (20:39)
[2022-02-16 20:51] LABS: Prolactin 41.2 ng/mL (3.0-18.6)
[2022-02-16 21:05] LABS: Thyroid Stimulating Hormone 1.58 uIU/mL (0.47-4.68)
[2022-02-16 22:11] LABS: Appearance Urine UA CLEAR; Bilirubin Urine UA NEGATIVE (NEGATIVE); Color Urine UA YELLOW; Glucose Urine UA NEGATIVE (Negative); Ketones Urine UA TRACE (NEGATIVE); Leukocyte Esterase Urine UA 2+ (NEGATIVE); Nitrite Urine UA NEGATIVE (Negative); Occult Blood Urine UA TRACE-INTACT (Negative); Protein Urine UA NEGATIVE (Negative); Urobilinogen Urine UA 0.2 E.U./dL (0.2)
[2022-02-16 22:15] LABS: UR Morphine/Opiate cutoff 300 Negative (Negative); Ur Creatinine Normal (Normal); Ur Specific Gravity Normal (Normal); Urine Amphetamines Negative (Negative); Urine Barbiturates Negative (Negative); Urine Benzodiazepines Negative (Negative); Urine Cocaine Negative (Negative); Urine MDMA Negative (Negative); Urine Methadone Negative (Negative); Urine Methamphetamines Negative (Negative); Urine Oxycodone Negative (Negative); Urine Phencyclidine Negative (Negative); Urine Tetrahydrocannabinol Negative (Negative); Urine Tricyclic Antidepressant Negative (Negative); Urine pH Normal (Normal)
[2022-02-16 22:20] LABS: Amorphous Sediment Urine 2+; Bacteria Urine Occasional (0-1); Culture Indicated Urine Specimen Cultured; RBC Urine 1-5/HPF (0-5/HPF); WBC Urine 5-10/HPF (0-5/HPF)
== END 2022-02-16 23:00 | disposition home or self-care (01) ==
PROVIDERS: Emergency Provider Emergency Medicine; PCP Student in an Organized Health Care Education/Training Program
DX: R55 Syncope and collapse (principal); N39.0 Urinary tract infection, site not specified; R07.9 Chest pain, unspecified; Z20.822 Contact with and (suspected) exposure to COVID-19
CPT/HCPCS: 36415; 70450; 71045; 80053; 80305; 80320; 81001; 82550; 83690; 83735; 84146; 84443; 84484; 85025; 87086; 87635; 93005; 93010; 96360; 96361; 99284; C9803

== ENCOUNTER 2022-02-17 19:04 | Emergency (ER) | payer OTHER, SELFPAY ==
[2022-02-17 19:43] VITALS: BP 143/62; PULSE 89; RESP 18; TEMP 36.3; O2SAT 98; BMI 20.1
== END 2022-02-17 19:48 | disposition left against medical advice (07) ==
PROVIDERS: Emergency Provider Emergency Medicine; PCP Student in an Organized Health Care Education/Training Program
CPT/HCPCS: 99281

== ENCOUNTER → 2022-05-25 10:11 | Outpatient (CLI) | payer OTHER, SELFPAY ==
[2022-05-25 11:04] LABS: Add Manual Diff / Slide Review NO; Basophils Absolute Auto 100 /uL (0-100); Eosinophils Absolute Auto 200 /uL (0-450); Eosinophils Percent Auto 2.7 % (2-4); Hematocrit 37.8 % (36-46); Hemoglobin 12.1 g/dL (12.0-16.0); Lymphocytes Absolute Auto 1300 /uL (1100-4500); Mean Corpuscular Hemoglobin 30.4 PG (26-34); Mean Corpuscular Volume 95.2 fL (80-100); Monocytes Absolute Auto 800 /uL (0-900); Monocytes Percent Auto 10.7 % (3-14); Neutrophils Absolute Auto 5200 /uL (1500-7000); Neutrophils Percent Auto 68.6 % (50-75); Platelet Count 311 X10^3/uL (150-400); Red Blood Cell Count 3.97 X10^6/uL (4.0-5.2); Red Cell Distribution Width 14.7 % (11.6-14.8); White Blood Cell Count 7.6 X10^3/uL (4.5-11.0)
[2022-05-25 11:12] LABS: Hemoglobin A1C% w Est Avg Glu 5.3 % (4.0-6.0)
[2022-05-25 11:33] LABS: Alanine Aminotransferase 23 IU/L (<35); Albumin 4.1 g/dL (3.5-5.0); Albumin Globulin Ratio 1.5 (1.0-2.8); Alkaline Phosphatase 92 U/L (38-126); Aspartate Aminotransferase 25 IU/L (14-36); BUN Creatinine Ratio 26.1 (6-22); Bilirubin Total 0.2 mg/dL (0.2-1.3); Blood Urea Nitrogen 24 mg/dL (7-17); Calcium 9.6 mg/dL (8.4-10.2); Carbon Dioxide 26 mmol/L (22-32); Chloride 105 mmol/L (98-107); Estimated Glomerular Filt Rate > 60 mL/min (>60); Globulin 2.8 g/dL (1.7-4.1); Glucose 91 mg/dL (80-110); HEMOLYSIS < 15 (0-50); Potassium 4.6 mmol/L (3.4-5.1); Sodium 140 mmol/L (137-145); Total Protein 6.9 g/dL (6.3-8.2)
[2022-05-25 11:41] LABS: Prolactin 6.7 ng/mL (3.0-18.6)
[2022-05-25 11:54] LABS: TSH w/ Reflex to FT4 0.65 uIU/mL (0.47-4.68)
== END ==
PROVIDERS: PCP Family Medicine; Referring Provider Family Medicine; Visit Provider Family Medicine
DX: D64.9 Anemia, unspecified (principal); R79.89 Other specified abnormal findings of blood chemistry; E03.9 Hypothyroidism, unspecified; E78.2 Mixed hyperlipidemia; I10 Essential (primary) hypertension; R73.9 Hyperglycemia, unspecified
CPT/HCPCS: 36415; 80053; 83036; 84146; 84443; 85025

== ENCOUNTER → 2022-06-15 12:02 | Outpatient (CLI) | payer OTHER, SELFPAY ==
--- NOTE | 2022-06-15 12:03 | DI.CT.S_ITS ---
PROCEDURE: CT FACIAL BONES W CON INDICATIONS: facial fractures TECHNIQUE: After the administration of intravenous contrast, 2.5 mm axial sections acquired from the mid-neck to the frontal sinuses, with coronal and sagittal reformats. For radiation dose reduction, the following was used: automated exposure control, adjustment of mA and/or kV according to patient size. COMPARISON: None. FINDINGS: Image quality: Excellent. Soft tissues: No edema, masses, or fluid collections. No enlarged lymph nodes. Vascular: Visualized vascular structures appear patent throughout. Bony vascular foramina and canals appear normal. Bones: There are mildly to moderately displaced fractures of the right zygomatic arch, as seen on series 2, image 72. There are mildly displaced fractures of the lateral aspect of the right maxillary sinus. The other henriquez of the right maxillary sinus do not appear fractured. No orbital wall fracture can be seen. No nasal bone fractures are seen. No facial bone fracture can be seen. Visualized portions of the skull base and auditory canals also appear normal. Sinuses: Paranasal sinuses are aerated without fluid levels, mucosal thickening, or mucoceles. Mastoid air cells are aerated. IMPRESSION: Fractures are seen of the right zygomatic arch and the lateral wall of the right maxillary sinus. Dictated by: Hill Sherman M.D. on 06/15/2022 at 14:54 Approved by: Hill Sherman M.D. on 06/15/2022 at 14:57
== END ==
PROVIDERS: PCP Family Medicine; Referring Provider Family Medicine; Visit Provider Family Medicine
DX: S02.40EA Zygomatic fracture, right side, initial encounter for closed fracture (principal); S02.40CA Maxillary fracture, right side, initial encounter for closed fracture; X58.XXXA Exposure to other specified factors, initial encounter
CPT/HCPCS: 70487

== ENCOUNTER → 2022-08-11 06:38 | Outpatient (CLI) | payer OTHER, SELFPAY ==
--- NOTE | 2022-08-11 06:39 | DI.US.S_ITS ---
PROCEDURE: US CAROTID DOPPLER BI INDICATIONS: right carotid calcification TECHNIQUE: Color and pulse Doppler interrogation was performed of both carotid systems, with image documentation and velocity measurements. COMPARISON: None. FINDINGS: Stenosis calculations are based on SRU (Society of Radiologists in Ultrasound) criteria. Right side: Brachial blood pressure: 155/80 mm Hg. Common carotid artery peak systolic velocity: 59 cm/sec. Internal carotid artery peak systolic velocity: 72 cm/sec. Internal carotid artery end diastolic velocity: 25 cm/sec. External carotid artery peak systolic velocity: 78 cm/sec. ICA/CCA peak systolic ratio: 1.2 . Flores scale imaging description: Mild plaque Percent internal carotid artery stenosis: Less than 50 percent. Vertebral artery: Flow direction is antegrade. Left side: Brachial blood pressure: 138/74 mm Hg. Common carotid artery peak systolic velocity: 52 cm/sec. Internal carotid artery peak systolic velocity: 76 cm/sec. Internal carotid artery end diastolic velocity: 29 cm/sec. External carotid artery peak systolic velocity: 82 cm/sec. ICA/CCA peak systolic ratio: 1.5 . Flores scale imaging description: Mild plaque Percent internal carotid artery stenosis: Less than 50 percent . Vertebral artery: Flow direction is antegrade. IMPRESSION: Less than 50 percent stenosis of the internal carotid arteries bilaterally. Dictated by: Josep Daly M.D. on 08/11/2022 at 9:05 Approved by: Josep Daly M.D. on 08/11/2022 at 9:12
== END ==
PROVIDERS: PCP Family Medicine; Referring Provider Family Medicine; Visit Provider Family Medicine
DX: I65.23 Occlusion and stenosis of bilateral carotid arteries
CPT/HCPCS: 93880

== ENCOUNTER → 2023-02-09 06:56 | Outpatient (CLI) | payer OTHER, SELFPAY ==
[2023-02-09 08:08] LABS: Add Manual Diff / Slide Review NO; Basophils Absolute Auto 100 /uL (0-100); Basophils Percent Auto 1.1 % (0-2); Eosinophils Absolute Auto 300 /uL (0-450); Eosinophils Percent Auto 5.4 % (2-4); Hematocrit 36.4 % (36-46); Hemoglobin 12.4 g/dL (12.0-16.0); Lymphocytes Absolute Auto 1700 /uL (1100-4500); Lymphocytes Percent Auto 27.8 % (25-40); Mean Corpuscular HGB Conc 33.9 % (30-36); Mean Corpuscular Hemoglobin 34.2 PG (26-34); Mean Corpuscular Volume 100.9 fL (80-100); Monocytes Absolute Auto 800 /uL (0-900); Monocytes Percent Auto 12.7 % (3-14); Neutrophils Absolute Auto 3200 /uL (1500-7000); Platelet Count 268 X10^3/uL (150-400); Red Blood Cell Count 3.61 X10^6/uL (4.0-5.2); Red Cell Distribution Width 14.2 % (11.6-14.8); White Blood Cell Count 6.1 X10^3/uL (4.5-11.0)
[2023-02-09 08:58] LABS: Alanine Aminotransferase 30 IU/L (<35); Albumin 4.1 g/dL (3.5-5.0); Albumin Globulin Ratio 1.6 (1.0-2.8); Alkaline Phosphatase 81 U/L (38-126); Aspartate Aminotransferase 32 IU/L (14-36); BUN Creatinine Ratio 24.1 (6-22); Bilirubin Total 0.4 mg/dL (0.2-1.3); Blood Urea Nitrogen 21 mg/dL (7-17); Calcium 9.5 mg/dL (8.4-10.2); Carbon Dioxide 28 mmol/L (22-32); Chloride 104 mmol/L (98-107); Cholesterol 173 mg/dL (140-199); Estimated Glomerular Filt Rate > 60 mL/min (>60); Globulin 2.6 g/dL (1.7-4.1); Glucose 85 mg/dL (80-110); HDL Cholesterol 86 mg/dL (40-60); HEMOLYSIS < 15 (0-50); LDL Cholesterol Calculated 69 mg/dL (<100); Potassium 4.7 mmol/L (3.4-5.1); Sodium 139 mmol/L (137-145); Total Protein 6.7 g/dL (6.3-8.2); Triglycerides 92 mg/dL (35-150)
[2023-02-09 09:16] LABS: Creatinine Urine Random 91.2 mg/dL
[2023-02-09 09:18] LABS: Microalbumin Urine Random 1.1 mg/dL (0-1.6)
[2023-02-09 09:19] LABS: TSH w/ Reflex to FT4 0.68 uIU/mL (0.47-4.68)
== END ==
PROVIDERS: PCP Family Medicine; Referring Provider Family Medicine; Visit Provider Family Medicine
DX: E03.9 Hypothyroidism, unspecified (principal); E78.5 Hyperlipidemia, unspecified; I10 Essential (primary) hypertension; Z00.00 Encounter for general adult medical examination without abnormal findings
CPT/HCPCS: 36415; 80053; 80061; 82043; 82570; 84443; 85025

== ENCOUNTER 2023-05-09 02:34 | Inpatient (IN) | payer OTHER, SELFPAY ==
[2023-05-09] VITALS (31 sets, daily range): BP systolic 115–180; BP diastolic 58–82; PULSE 70–94; RESP 12–20; TEMP 35.7–36.9; O2SAT 91–98; BMI 21.6
--- NOTE | 2023-05-09 | PATH_ITS ---
[facility] Accession Number: [id number] No. of containers..01 Tissue . 01 Material submitted: . gastrointestinal site - GASTRIC BIOPSY . 01 Diagnosis: Gastric Biopsy: Gastric body-type mucosa with mild chronic inflammation. Negative for Helicobacter organisms by immunohistochemistry. Negative for intestinal metaplasia. Negative for dysplasia or malignancy. MRV 05/14/2023 1453 Local . 01 Electronically signed: . Denisse Thorne MD, Pathologist NPI- [id number] . 01 Gross description: . GASTRIC BIOPSY: Received in formalin is multiple fragment(s) of grijalva, soft tissue measuring 0.7 x 0.3 x 0.1 cm in aggregate submitted entirely in 1 cassette(s) /AAY 05/10/2023 0256 Local . 01 Microscopic: . A. An immunohistochemical stain was performed to evaluate for Helicobacter organisms and is negative. The control stain showed appropriate reactivity. . * This test was developed and its performance characteristics determined by [facility]. It has not been cleared or approved by the U.S. Food and Drug Administration. The FDA has determined that such clearance or approval is not necessary. This test is used for clinical purposes. It should not be regarded as investigational or for research. . 01 Pathologist provided ICD-10: Z13.810 . 01 CPT . 116440, S80478 Specimen Comment: A courtesy copy of this report has been sent to [phone] Performed at: 01 [facility] [address] [place] [address], [place], [place] [id number] MD Jerel Valentin MD Phone: [phone]
--- NOTE | 2023-05-09 02:41 | ED_ITS ---
HPI - General Adult <Salo Lizarraga DO - Last Filed: 05/09/23 23:57> General Chief complaint: Abdominal Pain Stated complaint: vomiting, abd pain Time Seen by Provider: 05/09/23 02:41 History of Present Illness HPI narrative: This is a 77-year-old female history of hypothyroidism, dyslipidemia and hypertension who presents with?N/V and abdominal pain. She developed nausea on Sunday evening with multiple episodes of vomiting that night into Sunday. She did relatively well on Sunday but yesterday had persistent nausea and vomiting and now abdominal pain across her upper abdomen and wraps around to her back. She denies obvious provocation or palliation. She denies fever or chills. She is not dizzy nor weak or lightheaded. She is generally fatigued and unwell. She states that she has kept down some liquids as well as bananas and blueberries. She denies constipation or diarrhea and has no urinary complaints. Related Data Home Medications Medication Instructions Recorded Confirmed omega-3 fatty acids [Fish Oil 1 cap PO DAILY 04/18/21 05/09/23 Concentrate] Previous Rx's Medication Instructions Recorded atorvastatin 20 mg tablet 20 mg PO BEDTIME #90 tabs 03/05/23 levothyroxine 88 mcg tablet 88 mcg PO DAILY #90 tabs 03/05/23 lisinopril 5 mg tablet 5 mg PO DAILY #90 tabs 03/05/23 Allergies Allergy/AdvReac Type Severity Reaction Status Date / Time adhesive [ADHESIVE] Allergy Unknown skin Verified 05/09/23 14:16 becomes red and itchy Sulfa (Sulfonamide Allergy Unknown rash,ithching, Verified 05/09/23 14:16 Antibiotics) redness [SULFA (SULFONAMIDE ANTIBIOTICS)] Review of Systems <Salo Lizarraga DO - Last Filed: 05/09/23 23:57> Review of Systems Narrative: GENERAL: See HPI HEENT: Denies sinus pain, ear pain, sore throat, difficulty swallowing, dizziness. RESPIRATORY: Denies dyspnea, cough, wheezing, hemoptysis, sputum. CARDIOVASCULAR: Denies chest pain, palpitations, orthopnea, edema, GASTROINTESTINAL: See HPI : Denies dysuria, frequency, incontinence, hematuria, urinary retention. MUSCULOSKELETAL: denies weakness, joint pain, or bony pain SKIN: Denies rash, skin lesions, or other NEUROLOGIC: Denies weakness, headache, numbness, change in speech, confusion, seizures, incoordination. PSYCHIATRIC: No concerning psychosocial issues. 12 point review of systems is negative except for those stated above Patient History <Salo Lizarraga DO - Last Filed: 05/09/23 23:57> Medical History Mumps Measles Chicken pox Skin cancer Hyperlipidemia Hypertension Hypothyroidism Scoliosis Lumbar back pain with radiculopathy affecting left lower extremity Trochanteric bursitis of left hip Surgical History H/O right wrist surgery H/O section Social History number of children: 2 household members: spouse Smoking Status: Never smoker alcohol intake: current substance use type: does not use Smoking Status: Never smoker Substance Use Type: does not use Exam <Salo Lizarraga DO - Last Filed: 05/09/23 23:57> Narrative Exam Narrative: GENERAL: [77] year old patient appears stated age. Well-developed patient, in mild distress. HEAD: Atraumatic. Normocephalic. EYES: Pupils equal round and reactive. Extraocular motions intact. No scleral icterus. No injection or drainage. ENT: Nose without bleeding, purulent drainage. Throat without erythema, tonsillar hypertrophy or exudate. Airway patent. NECK: Trachea midline. Non tender CARDIOVASCULAR: Regular rate and rhythm without murmurs, gallops, or rubs. RESPIRATORY: Clear to auscultation. Breath sounds equal bilaterally. No wheezes, rales, or rhonchi. GASTROINTESTINAL: Abdomen soft, some tenderness in epigastrium, no guarding, nondistended. Bowel sounds present EXTREMITIES: No edema or joint tenderness. BACK: Nontender without deformity or crepitance. No flank tenderness. NEURO: AOx3. SKIN: No rash or erythema of visible areas Initial Vital Signs Initial Vital Signs: Vital Signs Temperature 97.7 F 05/09/23 02:45 Pulse Rate 75 05/09/23 02:45 Respiratory Rate 18 05/09/23 02:45 Blood Pressure 180/82 H 05/09/23 02:45 Pulse Oximetry 95 05/09/23 02:45 Oxygen Delivery Method Room Air 05/09/23 02:45 <Lonny Rankin MD - Last Filed: 05/09/23 09:18> Initial Vital Signs Initial Vital Signs: Vital Signs Temperature 97.7 F 05/09/23 02:45 Pulse Rate 75 05/09/23 02:45 Respiratory Rate 18 05/09/23 02:45 Blood Pressure 180/82 H 05/09/23 02:45 Pulse Oximetry 95 05/09/23 02:45 Oxygen Delivery Method Room Air 05/09/23 02:45 Course <Salo Lizarraga DO - Last Filed: 05/09/23 23:57> Orders Ordered: Hydromorphone HCl (Hydromorphone 0.5 Mg Inj) 0.5 mg IV Q2H PRN PRN Reason: Pain, Severe (7-10) Last Admin: 05/09/23 17:16 Dose: 0.5 mg Documented By: Admin: 05/09/23 10:37 Dose: 0.5 mg Documented By: TELLO Lactated Ringer's (Lactated Ringers) 1,000 mls @ 42 mls/hr IV CONT [facility] Last Admin: 05/09/23 14:30 Dose: 42 mls/hr Documented By: ROCIO Naloxone HCl (Naloxone 0.4 Mg/Ml Vial) 0.2 mg IV Q2MIN PRN PRN Reason: Opiate Reversal Pantoprazole Sodium (Pantoprazole 40 Mg Vial) 40 mg IV BID [facility] Last Admin: 05/09/23 20:28 Dose: 40 mg Documented By: Admin: 05/09/23 10:40 Dose: 40 mg Documented By: EM Discontinued Medications Carbamide Peroxide (Carbamide Peroxide Otic 15 Ml) 4 drops EAR-BOTH NOW ONE Stop: 05/09/23 07:53 Last Admin: 05/09/23 08:00 Dose: 4 drops Documented By: DETSIN Hydromorphone HCl (Hydromorphone 0.5 Mg Inj) 0.5 mg IV NOW ONE Stop: 05/09/23 02:52 Last Admin: 05/09/23 02:55 Dose: 0.5 mg Documented By: SENIA Hydromorphone HCl (Hydromorphone 0.5 Mg Inj) 0.5 mg IV NOW ONE Stop: 05/09/23 06:55 Last Admin: 05/09/23 06:58 Dose: 0.5 mg Documented By: SENIA Sodium Chloride (Normal Saline 0.9%) 1,000 mls @ 1,000 mls/hr IV BOLUS ONE Stop: 05/09/23 03:47 Last Infusion: 05/09/23 03:46 Dose: Infused Documented By: Admin: 05/09/23 02:53 Dose: 1,000 mls/hr Documented By: SENIA Lactated Ringer's (Lactated Ringers) 1,000 mls @ 150 mls/hr IV CONT [facility] Last Infusion: 05/09/23 16:30 Dose: 150 mls/hr Documented By: Infusion: 05/09/23 09:45 Dose: 0 mls/hr Documented By: Admin: 05/09/23 08:17 Dose: 150 mls/hr Documented By: DESTIN Lidocaine HCl (Lidocaine 2% (Glydo) 6 Ml Gel) 6 ml TOP NOW ONE Stop: 05/09/23 04:31 Last Admin: 05/09/23 03:30 Dose: 6 ml Documented By: CROW Ondansetron HCl (Ondansetron 4 Mg/2 Ml Inj) 4 mg IV NOW ONE Stop: 05/09/23 02:49 Last Admin: 05/09/23 02:53 Dose: 4 mg Documented By: SENIA Pantoprazole Sodium (Pantoprazole 40 Mg Vial) 40 mg IV NOW ONE Stop: 05/09/23 02:49 Last Admin: 05/09/23 02:53 Dose: 40 mg Documented By: SENIA Vital Signs Vital signs: Vital Signs - 8 hr 05/09/23 02:45 05/09/23 02:55 05/09/23 03:00 Temperature 97.7 F Pulse Rate 75 70 76 Respiratory Rate 18 Blood Pressure 180/82 H Pulse Oximetry 95 93 97 Oxygen Delivery Method Room Air 05/09/23 03:02 05/09/23 03:02 05/09/23 03:38 Temperature Pulse Rate 77 74 Respiratory Rate 18 Blood Pressure 149/69 H Pulse Oximetry 92 91 Oxygen Delivery Method 05/09/23 04:00 05/09/23 04:30 05/09/23 05:00 Temperature Pulse Rate 70 78 77 Respiratory Rate 16 Blood Pressure Pulse Oximetry 94 95 92 Oxygen Delivery Method 05/09/23 05:30 05/09/23 06:00 05/09/23 06:29 Temperature Pulse Rate 75 76 Respiratory Rate Blood Pressure 151/70 H Pulse Oximetry 92 92 Oxygen Delivery Method 05/09/23 06:29 05/09/23 06:30 05/09/23 06:30 Temperature Pulse Rate 79 79 Respiratory Rate Blood Pressure 158/75 H Pulse Oximetry 95 95 Oxygen Delivery Method 05/09/23 06:52 05/09/23 07:00 05/09/23 07:01 Temperature Pulse Rate 79 79 Respiratory Rate Blood Pressure 146/70 H Pulse Oximetry 94 96 Oxygen Delivery Method 05/09/23 07:30 05/09/23 07:30 05/09/23 08:00 Temperature Pulse Rate 75 73 Respiratory Rate Blood Pressure 146/65 H Pulse Oximetry 98 98 Oxygen Delivery Method 05/09/23 08:00 Temperature Pulse Rate Respiratory Rate Blood Pressure 148/72 H Pulse Oximetry Oxygen Delivery Method <Lonny Rankin MD - Last Filed: 05/09/23 09:18> Course Course Narrative: I assumed care from Dr. Lizarraga at change of shift. An NG has been placed for gastric outlet obstruction. Surgery had been consulted, the initial plan was to admit to the hospitalist. Now, on day shift, surgery and the hospitalist have discussed the case. Dr. Saldana, surgery, has come in to see the patient himself. He will admit to Surgery Services, with planned endoscopy later today. I have restarted IV fluids, given LR 150 per hour. Her NG does not show significant fluid, but she notes that her abdomen is significantly deflated. She feels better. She did complain of right ear pain after NG placement. They are required irrigation. The TM is normal. She is awaiting admission. - Darrel BLAIR 05/09/23 @ 08:50 Orders Ordered: Hydromorphone HCl (Hydromorphone 0.5 Mg Inj) 0.5 mg IV Q2H PRN PRN Reason: Pain, Severe (7-10) Last Admin: 05/09/23 17:16 Dose: 0.5 mg Documented By: Admin: 05/09/23 10:37 Dose: 0.5 mg Documented By: EM Lactated Ringer's (Lactated Ringers) 1,000 mls @ 42 mls/hr IV CONT [facility] Last Admin: 05/09/23 14:30 Dose: 42 mls/hr Documented By: ROCIO Naloxone HCl (Naloxone 0.4 Mg/Ml Vial) 0.2 mg IV Q2MIN PRN PRN Reason: Opiate Reversal Pantoprazole Sodium (Pantoprazole 40 Mg Vial) 40 mg IV BID [facility] Last Admin: 05/09/23 20:28 Dose: 40 mg Documented By: Admin: 05/09/23 10:40 Dose: 40 mg Documented By: EM Discontinued Medications Carbamide Peroxide (Carbamide Peroxide Otic 15 Ml) 4 drops EAR-BOTH NOW ONE Stop: 05/09/23 07:53 Last Admin: 05/09/23 08:00 Dose: 4 drops Documented By: DESTIN Hydromorphone HCl (Hydromorphone 0.5 Mg Inj) 0.5 mg IV NOW ONE Stop: 05/09/23 02:52 Last Admin: 05/09/23 02:55 Dose: 0.5 mg Documented By: SENIA Hydromorphone HCl (Hydromorphone 0.5 Mg Inj) 0.5 mg IV NOW ONE Stop: 05/09/23 06:55 Last Admin: 05/09/23 06:58 Dose: 0.5 mg Documented By: SENIA Sodium Chloride (Normal Saline 0.9%) 1,000 mls @ 1,000 mls/hr IV BOLUS ONE Stop: 05/09/23 03:47 Last Infusion: 05/09/23 03:46 Dose: Infused Documented By: Admin: 05/09/23 02:53 Dose: 1,000 mls/hr Documented By: SENIA Lactated Ringer's (Lactated Ringers) 1,000 mls @ 150 mls/hr IV CONT [facility] Last Infusion: 05/09/23 16:30 Dose: 150 mls/hr Documented By: Infusion: 05/09/23 09:45 Dose: 0 mls/hr Documented By: Admin: 05/09/23 08:17 Dose: 150 mls/hr Documented By: DESTIN Lidocaine HCl (Lidocaine 2% (Glydo) 6 Ml Gel) 6 ml TOP NOW ONE Stop: 05/09/23 04:31 Last Admin: 05/09/23 03:30 Dose: 6 ml Documented By: CROW Ondansetron HCl (Ondansetron 4 Mg/2 Ml Inj) 4 mg IV NOW ONE Stop: 05/09/23 02:49 Last Admin: 05/09/23 02:53 Dose: 4 mg Documented By: SENIA Pantoprazole Sodium (Pantoprazole 40 Mg Vial) 40 mg IV NOW ONE Stop: 05/09/23 02:49 Last Admin: 05/09/23 02:53 Dose: 40 mg Documented By: SENIA Vital Signs Vital signs: Vital Signs - 8 hr 05/09/23 02:45 05/09/23 02:55 05/09/23 03:00 Temperature 97.7 F Pulse Rate 75 70 76 Respiratory Rate 18 Blood Pressure 180/82 H Pulse Oximetry 95 93 97 Oxygen Delivery Method Room Air 05/09/23 03:02 05/09/23 03:02 05/09/23 03:38 Temperature Pulse Rate 77 74 Respiratory Rate 18 Blood Pressure 149/69 H Pulse Oximetry 92 91 Oxygen Delivery Method 05/09/23 04:00 05/09/23 04:30 05/09/23 05:00 Temperature Pulse Rate 70 78 77 Respiratory Rate 16 Blood Pressure Pulse Oximetry 94 95 92 Oxygen Delivery Method 05/09/23 05:30 05/09/23 06:00 05/09/23 06:29 Temperature Pulse Rate 75 76 Respiratory Rate Blood Pressure 151/70 H Pulse Oximetry 92 92 Oxygen Delivery Method 05/09/23 06:29 05/09/23 06:30 05/09/23 06:30 Temperature Pulse Rate 79 79 Respiratory Rate Blood Pressure 158/75 H Pulse Oximetry 95 95 Oxygen Delivery Method 05/09/23 06:52 05/09/23 07:00 05/09/23 07:01 Temperature Pulse Rate 79 79 Respiratory Rate Blood Pressure 146/70 H Pulse Oximetry 94 96 Oxygen Delivery Method 05/09/23 07:30 05/09/23 07:30 05/09/23 08:00 Temperature Pulse Rate 75 73 Respiratory Rate Blood Pressure 146/65 H Pulse Oximetry 98 98 Oxygen Delivery Method 05/09/23 08:00 Temperature Pulse Rate Respiratory Rate Blood Pressure 148/72 H Pulse Oximetry Oxygen Delivery Method Medical Decision Making <Salo Lizarraga DO - Last Filed: 05/09/23 23:57> Lab Data 05/09/23 02:55 05/09/23 02:55 Labs: Lab Results 05/09/23 Range/Units 02:55 WBC 14.3 H (4.5-11.0) X10^3/uL RBC 3.61 L (4.0-5.2) X10^6/uL Hgb 12.3 (12.0-16.0) g/dL Hct 35.9 L (36-46) % MCV 99.4 (80-100) fL MCH 34.0 (26-34) PG MCHC 34.2 (30-36) % RDW 13.5 (11.6-14.8) % Plt Count 259 (150-400) X10^3/uL Neut % (Auto) 76.0 H (50-75) % Lymph % (Auto) 14.2 L (25-40) % Bacon % (Auto) 8.7 (3-14) % Eos % (Auto) 0.6 L (2-4) % Baso % (Auto) 0.5 (0-2) % Neut # (Auto) 36479 H (1774-1538) /uL Lymph # (Auto) 2000 (0311-0789) /uL Bacon # (Auto) 1200 H (0-900) /uL Eos # (Auto) 100 (0-450) /uL Baso # (Auto) 100 (0-100) /uL Sodium 137 (137-145) mmol/L Potassium 3.6 (3.4-5.1) mmol/L Chloride 99 (98-107) mmol/L Carbon Dioxide 30 (22-32) mmol/L BUN 21 H (7-17) mg/dL Creatinine 0.82 (0.52-1.04) mg/dL Estimated GFR > 60 (>60) mL/min BUN/Creatinine Ratio 25.6 H (6-22) Glucose 114 H (80-110) mg/dL Lactate 0.8 (0.7-2.1) mmol/L Calcium 10.3 H (8.4-10.2) mg/dL Magnesium 1.9 (1.6-2.3) mg/dL Total Bilirubin 0.7 (0.2-1.3) mg/dL AST 28 (14-36) IU/L ALT 29 (<35) IU/L Alkaline Phosphatase 80 (38-126) U/L Total Creatine Kinase 40 (30-135) U/L Troponin I < 0.012 (0.01-0.034) ng/mL Total Protein 7.0 (6.3-8.2) g/dL Albumin 4.2 (3.5-5.0) g/dL Globulin 2.8 (1.7-4.1) g/dL Albumin/Globulin Ratio 1.5 (1.0-2.8) Lipase 195 (23-300) U/L MDM Narrative Medical decision making narrative: CC: 77-year-old female with nausea, vomiting and abdominal pain Complicating co-morbidities: Age, hypertension, hyperlipidemia Data collected from: Patient Medical records reviewed: Prior notes reviewed in our EMR Differential considered, but not limited to: Bowel obstruction versus pancreatitis versus gallbladder disease versus food-borne illness versus other Exam documented above, pertinent findings include: Heart rate regular, lungs clear, epigastric pain on palpation , LFTs and troponin within normal Lab Test results independently reviewed as above. Pertinent findings: White count of 14.3, relative left shift, no signs of anemia, primarily electrolytes within normal limits, no abnormal renal function Independently reviewed EKG as above Imaging studies independently reviewed:CT of abdomen and pelvis demonstrates gastric outlet obstruction Treatments: Fluids, Zofran, Dilaudid, Protonix, NG tube (450mL out) Re-evaluations: Symptoms greatly improved after above-stated therapies Discussion: Patient with epigastric pain, nausea and vomiting found to have gastric outlet obstruction. Symptoms greatly improved after above-stated therapies, NG tube results in greater than 450 mL out. Discussed with on-call surgeon (Dr. Desir) recommends fluids, pain control, NG tube, admission to hospitalist with likely EGD today or tomorrow. Call to hospitalist (Dr. Vu) discussed basics, but recommends discussion with day team <Lonny Rankin MD - Last Filed: 05/09/23 09:18> Lab Data Labs: Lab Results 05/09/23 Range/Units 02:55 WBC 14.3 H (4.5-11.0) X10^3/uL RBC 3.61 L (4.0-5.2) X10^6/uL Hgb 12.3 (12.0-16.0) g/dL Hct 35.9 L (36-46) % MCV 99.4 (80-100) fL MCH 34.0 (26-34) PG MCHC 34.2 (30-36) % RDW 13.5 (11.6-14.8) % Plt Count 259 (150-400) X10^3/uL Neut % (Auto) 76.0 H (50-75) % Lymph % (Auto) 14.2 L (25-40) % Bacon % (Auto) 8.7 (3-14) % Eos % (Auto) 0.6 L (2-4) % Baso % (Auto) 0.5 (0-2) % Neut # (Auto) 34741 H (5823-4292) /uL Lymph # (Auto) 2000 (0827-8301) /uL Bacon # (Auto) 1200 H (0-900) /uL Eos # (Auto) 100 (0-450) /uL Baso # (Auto) 100 (0-100) /uL Sodium 137 (137-145) mmol/L Potassium 3.6 (3.4-5.1) mmol/L Chloride 99 (98-107) mmol/L Carbon Dioxide 30 (22-32) mmol/L BUN 21 H (7-17) mg/dL Creatinine 0.82 (0.52-1.04) mg/dL Estimated GFR > 60 (>60) mL/min BUN/Creatinine Ratio 25.6 H (6-22) Glucose 114 H (80-110) mg/dL Lactate 0.8 (0.7-2.1) mmol/L Calcium 10.3 H (8.4-10.2) mg/dL Magnesium 1.9 (1.6-2.3) mg/dL Total Bilirubin 0.7 (0.2-1.3) mg/dL AST 28 (14-36) IU/L ALT 29 (<35) IU/L Alkaline Phosphatase 80 (38-126) U/L Total Creatine Kinase 40 (30-135) U/L Troponin I < 0.012 (0.01-0.034) ng/mL Total Protein 7.0 (6.3-8.2) g/dL Albumin 4.2 (3.5-5.0) g/dL Globulin 2.8 (1.7-4.1) g/dL Albumin/Globulin Ratio 1.5 (1.0-2.8) Lipase 195 (23-300) U/L Discharge Plan Departure Patient Disposition: Admitted as Observation Clinical Impression: Gastric outlet obstruction Admit Date/Time: 05/09/23 08:27 Admit Provider: Mike Saldana
--- NOTE | 2023-05-09 02:49 | DI.CT.S_ITS ---
PROCEDURE: CT ABDOMEN PELVIS W CON INDICATIONS: severe abdominal pain, N/V TECHNIQUE: After the administration of oral and IV contrast, axial sections were acquired from the lung bases to the pubic symphysis. Coronal and sagittal reformats were performed. For radiation dose reduction, the following was used: automated exposure control, adjustment of mA and/or kV according to patient size. COMPARISON: None. FINDINGS: Image quality: Excellent. Lung bases: Unremarkable. Heart: No significant findings. ABDOMEN: Liver: Tiny cyst at the dome of the liver. Gallbladder: Prominent. Several small gallstones. Biliary ducts: Not dilated. Pancreas: Enhances uniformly. No pancreatic ductal dilatation. Spleen: No splenomegaly. Adrenal Glands: No nodule. Kidneys and Ureters: No hydronephrosis. No solid renal mass. 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 Stomach and Bowel: Stomach is fluid distended. There is marked thickening at the gastric antrum with narrowing, (4/15). No free fluid. The duodenum is not distended. No small bowel obstruction. Diverticulosis. The appendix is not identified. Peritoneum: No ascites. No pneumoperitoneum. Ventral Wall: No hernia. Abdominal Nodes: No retroperitoneal or mesenteric adenopathy by size criteria. Small lymph node near the gastric antrum measuring 0.7 cm, (2/33). Vessels: Aorta and inferior vena cava are normal in size. Calcified atherosclerotic plaque. PELVIS: Pelvic Organs: Uterus is absent. Bladder: No stone. Pelvic Nodes: No enlarged lymph nodes. Miscellaneous: No inguinal hernias are seen. Bones: No suspicious osseous lesion. Multilevel DDD. IMPRESSION: 1. Marked thickening and narrowing at the gastric antrum with a fluid-filled distended stomach. Findings most consistent with gastric outlet obstruction. Diagnostic considerations include gastritis, gastric neoplasm, or swelling due to duodenal ulcer. Recommend endoscopic evaluation. 2. No free fluid or free air is seen. No small bowel obstruction. 3. Gallbladder is prominent with layering gallstones. This report is concordant with the overnight preliminary interpretation. Dictated by: Elder Kirkland M.D. on 05/09/2023 at 8:17 Approved by: Elder Kirkland M.D. on 05/09/2023 at 8:26
[2023-05-09] MEDS: SODIUM CHLORIDE 0.9% 1,000 ML 1000 ML IV (02:53)
[2023-05-09] MEDS: ONDANSETRON 4 MG/2 ML INJ IV (02:53)
[2023-05-09] MEDS: PANTOPRAZOLE 40 MG VIAL IV ×3 (02:53→20:28)
[2023-05-09] MEDS: HYDROMORPHONE 0.5 MG INJ IV ×4 (02:55→17:16)
[2023-05-09 03:05] LABS: Add Manual Diff / Slide Review NO; Basophils Absolute Auto 100 /uL (0-100); Basophils Percent Auto 0.5 % (0-2); Eosinophils Absolute Auto 100 /uL (0-450); Eosinophils Percent Auto 0.6 % (2-4); Hematocrit 35.9 % (36-46); Hemoglobin 12.3 g/dL (12.0-16.0); Lymphocytes Absolute Auto 2000 /uL (1100-4500); Lymphocytes Percent Auto 14.2 % (25-40); Mean Corpuscular HGB Conc 34.2 % (30-36); Mean Corpuscular Volume 99.4 fL (80-100); Monocytes Absolute Auto 1200 /uL (0-900); Monocytes Percent Auto 8.7 % (3-14); Neutrophils Absolute Auto 10900 /uL (1500-7000); Platelet Count 259 X10^3/uL (150-400); Red Blood Cell Count 3.61 X10^6/uL (4.0-5.2); Red Cell Distribution Width 13.5 % (11.6-14.8); White Blood Cell Count 14.3 X10^3/uL (4.5-11.0)
[2023-05-09 03:16] LABS: Creatine Kinase 40 U/L (30-135)
[2023-05-09 03:17] LABS: Alanine Aminotransferase 29 IU/L (<35); Albumin 4.2 g/dL (3.5-5.0); Albumin Globulin Ratio 1.5 (1.0-2.8); Alkaline Phosphatase 80 U/L (38-126); Aspartate Aminotransferase 28 IU/L (14-36); BUN Creatinine Ratio 25.6 (6-22); Bilirubin Total 0.7 mg/dL (0.2-1.3); Blood Urea Nitrogen 21 mg/dL (7-17); Calcium 10.3 mg/dL (8.4-10.2); Carbon Dioxide 30 mmol/L (22-32); Chloride 99 mmol/L (98-107); Estimated Glomerular Filt Rate > 60 mL/min (>60); Globulin 2.8 g/dL (1.7-4.1); Glucose 114 mg/dL (80-110); HEMOLYSIS < 15 (0-50); Lactate (Lactic Acid) 0.8 mmol/L (0.7-2.1); Lipase 195 U/L (23-300); Magnesium 1.9 mg/dL (1.6-2.3); Potassium 3.6 mmol/L (3.4-5.1); Sodium 137 mmol/L (137-145)
[2023-05-09 03:28] LABS: Troponin I < 0.012 ng/mL (0.01-0.034)
[2023-05-09] MEDS: LIDOCAINE 2% (GLYDO) 6 ML GEL TOP (03:30)
--- NOTE | 2023-05-09 03:34 | PC.NURSE ---
pt to ct per stretcher
--- NOTE | 2023-05-09 06:41 | DI.RAD.S_ITS ---
PROCEDURE: XR CHEST 1V INDICATIONS: ng placement TECHNIQUE: One view of the chest was acquired. COMPARISON: [facility], , XR CHEST 1V, 02/16/2022, 20:04. FINDINGS: Surgical changes and devices: Enteric tube is seen traversing the diaphragm with tip and side hole projecting over the left upper quadrant stomach bubble. Lungs and pleura: Lungs are hyperexpanded and clear. No pleural effusions or pneumothorax. Mediastinum: Mediastinal contours appear normal. Heart size is normal. Bones and chest wall: No suspicious bony lesions. Overlying soft tissues appear unremarkable. IMPRESSION: Enteric tube is seen in satisfactory position. There is no significant discrepancy when compared to the overnight preliminary report. Approved by: Josep Brown M.D. on 05/09/2023 at 8:21
--- NOTE | 2023-05-09 06:47 | PC.NURSE ---
pt continues resting with NG to LWS, tolerating well, at bedside, no c/o pain or vomiting at present. waiting for room assignment
[2023-05-09] MEDS: CARBAMIDE PEROXIDE OTIC 15 ML 4 DROPS EAR-BOTH (08:00)
[2023-05-09] MEDS: LACTATED RINGERS 1,000 ML 150 ML IV (08:17)
--- NOTE | 2023-05-09 11:17 | P.CONS_ITS ---
History of Present Illness Consult details Date Patient Seen: 05/09/23 Time Patient Seen: 11:17 Chief complaint: vomiting, abd pain Narrative: This is a 77 year old female with PMH of HTN, HLD, hypothyroidism who presented with nausea, vomiting and abdominal pain for the past 3 days. She reports eating fish and chips, but then getting an upset stomach Sunday with mild abdominal pain, distension and vomiting. Abdominal pain and distension slowly worsened and was worst yesterday evening, prompting her ER visit. Her last bowel movement was yesterday, normal in appearance and color with no melena. She does report hemorrhoids chronically. Never had an EGD. Colonoscopy was a few years ago but doctor told her she no longer needed another in the future. She reports taking advil PM for sleep a few nights a week, but unclear on amount of NSAID use in general. She reports no recent fever, chills, chest pain, shortness of breath. In the ER, labs showed a mild leukocytosis but the remainder of her labs including chemistries were unremarkable. CT showed gastric thickening and narrowing consistent with gastic outlet obstruction. Overnight hospitalist deferred to day for decision on admit. Discussed with general surgery whom admitted the patient, and hospitalist will consult for management of her underlying medical conditions. Current plans are for EGD this afternoon, with possible need for surgical interventions depending on endoscopy findings. Meds Home Medications and Allergies Home Medications Medication Instructions Recorded Confirmed Type omega-3 fatty acids [Fish Oil 1 cap PO DAILY 04/18/21 05/09/23 History Concentrate] atorvastatin 20 mg tablet 20 mg PO BEDTIME #90 tabs 03/05/23 05/09/23 Rx levothyroxine 88 mcg tablet 88 mcg PO DAILY #90 tabs 03/05/23 05/09/23 Rx lisinopril 5 mg tablet 5 mg PO DAILY #90 tabs 03/05/23 05/09/23 Rx Allergies Allergy/AdvReac Type Severity Reaction Status Date / Time adhesive [ADHESIVE] Allergy Unknown skin Verified 02/07/23 08:18 becomes red and itchy Sulfa (Sulfonamide Allergy Unknown rash,ithching, Verified 02/07/23 08:18 Antibiotics) redness [SULFA (SULFONAMIDE ANTIBIOTICS)] Review of Systems Review of Systems Narrative: All other systems reviewed with the patient and are negative unless otherwise stated. Exam Vital Signs (past 8 hours): - 05/09/23 03:38 05/09/23 04:00 05/09/23 04:30 Temperature Pulse Rate 74 70 78 Respiratory Rate 18 16 Blood Pressure Pulse Oximetry 91 94 95 Oxygen Delivery Method Oxygen Flow Rate 05/09/23 05:00 05/09/23 05:30 05/09/23 06:00 Temperature Pulse Rate 77 75 76 Respiratory Rate Blood Pressure Pulse Oximetry 92 92 92 Oxygen Delivery Method Oxygen Flow Rate 05/09/23 06:29 05/09/23 06:29 05/09/23 06:30 Temperature Pulse Rate 79 Respiratory Rate Blood Pressure 151/70 H 158/75 H Pulse Oximetry 95 Oxygen Delivery Method Oxygen Flow Rate 05/09/23 06:30 05/09/23 06:52 05/09/23 07:00 Temperature Pulse Rate 79 79 Respiratory Rate Blood Pressure 146/70 H Pulse Oximetry 95 94 Oxygen Delivery Method Oxygen Flow Rate 05/09/23 07:01 05/09/23 07:30 05/09/23 07:30 Temperature Pulse Rate 79 75 Respiratory Rate Blood Pressure 146/65 H Pulse Oximetry 96 98 Oxygen Delivery Method Oxygen Flow Rate 05/09/23 08:00 05/09/23 08:00 05/09/23 08:30 Temperature Pulse Rate 73 81 Respiratory Rate Blood Pressure 148/72 H Pulse Oximetry 98 97 Oxygen Delivery Method Oxygen Flow Rate 05/09/23 08:30 05/09/23 09:00 05/09/23 09:01 Temperature Pulse Rate 75 77 Respiratory Rate Blood Pressure 144/67 H Pulse Oximetry 97 97 Oxygen Delivery Method Oxygen Flow Rate 05/09/23 09:01 05/09/23 10:09 05/09/23 10:09 Temperature 98.2 F Pulse Rate 83 Respiratory Rate 18 Blood Pressure 145/70 H 150/66 H Pulse Oximetry 93 93 Oxygen Delivery Method Room Air Oxygen Flow Rate 0 0 Oxygen Delivery Method Room Air Oxygen Flow Rate 0 Narrative Exam Narrative: General:? Patient is well developed and well nourished, in no distress at this time. NG in place HEENT:? Normocephalic, atraumatic, extraocular muscles intact, oral pharynx is clear and mucous membranes are moist. Chest:? Normal AP diameter and contour without kyphoscoliosis, no tachypnea, equal chest rise bilaterally. Lungs:? CTA b/l no wheezing rhonchi or rales. Cardio:?RRR no m/r/g. Abdomen: soft, mild epigastric distension, mild tenderness epigastrium. Musculoskeletal:? Muscle strength and tone are equal within normal limits, no deformity. Extremities: No edema or joint effusions. No cyanosis or clubbing. Skin:? Pale,? Warm to touch,dry and intact without rashes, ulcerations or petechiae.? Neuro:? Alert and orientated x3,? sensation to touch intact in all extremities, no gross deficits noted of cranial nerves. Psych:? Patient has a well-kept appearance, appropriate affect, mental status attitude thought context and judgment are appropriate for age. Objective ECG Impression: Reviewed prior tracing from 02/2022, EKG shows NSR with sinus arrythmia. Labs 05/09/23 02:55 05/09/23 02:55 Labs: Laboratory Results - last 24 hr 05/09/23 02:55 WBC 14.3 H RBC 3.61 L Hgb 12.3 Hct 35.9 L MCV 99.4 MCH 34.0 MCHC 34.2 RDW 13.5 Plt Count 259 Neut % (Auto) 76.0 H Lymph % (Auto) 14.2 L [place] % (Auto) 8.7 Eos % (Auto) 0.6 L Baso % (Auto) 0.5 Neut # (Auto) 92992 H Lymph # (Auto) 2000 [place] # (Auto) 1200 H Eos # (Auto) 100 Baso # (Auto) 100 Sodium 137 Potassium 3.6 Chloride 99 Carbon Dioxide 30 BUN 21 H Creatinine 0.82 Estimated GFR > 60 BUN/Creatinine Ratio 25.6 H Glucose 114 H Lactate 0.8 Calcium 10.3 H Magnesium 1.9 Total Bilirubin 0.7 AST 28 ALT 29 Alkaline Phosphatase 80 Total Creatine Kinase 40 Troponin I < 0.012 Total Protein 7.0 Albumin 4.2 Globulin 2.8 Albumin/Globulin Ratio 1.5 Lipase 195 PFSH Medical History Mumps Measles Chicken pox Skin cancer Hyperlipidemia Hypertension Hypothyroidism Scoliosis Lumbar back pain with radiculopathy affecting left lower extremity Trochanteric bursitis of left hip Surgical History H/O right wrist surgery H/O section Social History number of children: 2 household members: spouse Tobacco & Substance Use Smoking Status: Never smoker alcohol intake: current substance use type: does not use Assessment & Plan Assessment & Plan narrative: 1. Gastric thickening with possible gastric outlet obstruction - NG placed in the ER with approx 450 cc fluid removed. - continue NPO/IVF and NG tube for now, prn pain and nausea medications - surgery plans to perform EGD, may need additional surgical interventions after 2. HTN - okay to hold home medications, will add IV medications if needed. Hold lisinopril prior to possible surgery. 3. HLD - hold home statin until tolerating PO 4. Hypothyroid - continue home levothyroxine once tolerating PO, not recommended for IV repletion unless prolonged NPO status Code: full, surrogate is patient's spouse DVT: SCD prior to possible surgery I have utilized all available immediate resources to obtain, update, or review the patient's current medications. Medicine will continue to follow along with this patient. Additional history obtained via discussion with general surgeon and ER provider, as well as spouse at bedside.
[2023-05-09] MEDS: LACTATED RINGERS 1,000 ML 42 ML IV (14:30)
--- NOTE | 2023-05-09 14:58 | PM.HP.1 ---
History of Present Illness History of Present Illness Date Patient Seen: 05/09/23 Time Patient Seen: 14:58 Chief complaint: vomiting, abd pain Narrative: Ms. Mcnair is a 77-year-old woman who presented to [facility] with several days of abdominal pain and nausea. She describes non bilious emesis upper abdominal pain and bloating. At admission afebrile vital signs within normal limits white blood cell count 14, creatinine 0.8 the remainder of her labs unremarkable. CT abdomen pelvis performed demonstrates gastric outlet obstruction. On my read of the film there is a significant amount of inflammation within the 1st portion of the duodenal with significant narrowing no free air or free fluid. For the past year or 2 she is been eating smaller amounts of food which she attributes to loss of taste, but no significant unintentional weight loss. No known history of peptic ulcer disease. Nasogastric tube was placed in the emergency department with nearly 2 L of gastric output. [facility] Medical History Mumps Measles Chicken pox Skin cancer Hyperlipidemia Hypertension Hypothyroidism Scoliosis Lumbar back pain with radiculopathy affecting left lower extremity Trochanteric bursitis of left hip Surgical History H/O right wrist surgery H/O section Social History number of children: 2 household members: spouse Smoking Status: Never smoker alcohol intake: current substance use type: does not use Meds Home Medications and Allergies Home Medications Medication Instructions Recorded Confirmed Type omega-3 fatty acids [Fish Oil 1 cap PO DAILY 04/18/21 05/09/23 History Concentrate] atorvastatin 20 mg tablet 20 mg PO BEDTIME #90 tabs 03/05/23 05/09/23 Rx levothyroxine 88 mcg tablet 88 mcg PO DAILY #90 tabs 03/05/23 05/09/23 Rx lisinopril 5 mg tablet 5 mg PO DAILY #90 tabs 03/05/23 05/09/23 Rx Allergies Allergy/AdvReac Type Severity Reaction Status Date / Time adhesive [ADHESIVE] Allergy Unknown skin Verified 05/09/23 14:16 becomes red and itchy Sulfa (Sulfonamide Allergy Unknown rash,ithching, Verified 05/09/23 14:16 Antibiotics) redness [SULFA (SULFONAMIDE ANTIBIOTICS)] Exam Vital Signs (past 8 hours): - 05/09/23 07:00 05/09/23 07:01 05/09/23 07:30 Temperature Pulse Rate 79 75 Respiratory Rate Blood Pressure 146/70 H Pulse Oximetry 96 98 Oxygen Delivery Method Oxygen Flow Rate 05/09/23 07:30 05/09/23 08:00 05/09/23 08:00 Temperature Pulse Rate 73 Respiratory Rate Blood Pressure 146/65 H 148/72 H Pulse Oximetry 98 Oxygen Delivery Method Oxygen Flow Rate 05/09/23 08:30 05/09/23 08:30 05/09/23 09:00 Temperature Pulse Rate 81 75 Respiratory Rate Blood Pressure 144/67 H Pulse Oximetry 97 97 Oxygen Delivery Method Oxygen Flow Rate 05/09/23 09:01 05/09/23 09:01 05/09/23 10:09 Temperature Pulse Rate 77 Respiratory Rate Blood Pressure 145/70 H Pulse Oximetry 97 93 Oxygen Delivery Method Room Air Oxygen Flow Rate 0 05/09/23 10:09 05/09/23 14:13 Temperature 98.2 F 98.2 F Pulse Rate 83 82 Respiratory Rate 18 12 Blood Pressure 150/66 H 154/77 H Pulse Oximetry 93 93 Oxygen Delivery Method Room Air Oxygen Flow Rate 0 Oxygen Delivery Method Room Air Oxygen Flow Rate 0 Narrative Exam Narrative: General elderly woman alert oriented uncomfortable nasogastric tube nonbilious Chest nonlabored respiration Abdomen mild distention no peritonitis Extremities warm well perfused Objective Labs 05/09/23 02:55 05/09/23 02:55 Labs: Laboratory Results - last 24 hr 05/09/23 02:55 WBC 14.3 H RBC 3.61 L Hgb 12.3 Hct 35.9 L MCV 99.4 MCH 34.0 MCHC 34.2 RDW 13.5 Plt Count 259 Neut % (Auto) 76.0 H Lymph % (Auto) 14.2 L [place] % (Auto) 8.7 Eos % (Auto) 0.6 L Baso % (Auto) 0.5 Neut # (Auto) 74384 H Lymph # (Auto) 2000 [place] # (Auto) 1200 H Eos # (Auto) 100 Baso # (Auto) 100 Sodium 137 Potassium 3.6 Chloride 99 Carbon Dioxide 30 BUN 21 H Creatinine 0.82 Estimated GFR > 60 BUN/Creatinine Ratio 25.6 H Glucose 114 H Lactate 0.8 Calcium 10.3 H Magnesium 1.9 Total Bilirubin 0.7 AST 28 ALT 29 Alkaline Phosphatase 80 Total Creatine Kinase 40 Troponin I < 0.012 Total Protein 7.0 Albumin 4.2 Globulin 2.8 Albumin/Globulin Ratio 1.5 Lipase 195 Assessment & Plan Assessment and plan (1) Gastric outlet obstruction: Status: Acute Assessment & Plan narrative: 77-year-old woman admitted to hospital with a gastric outlet obstruction. Films and laboratory studies personally reviewed. Long segment of narrow duodenum, there is no evidence of acute ulcer perforation, no free fluid no free air. I discussed with the patient and her recommendations going forward. Recommended that we proceed with a esophagoduodenoscopy for further evaluation. Dependent on findings she may need transfer to a tertiary center for a endoscopic stent or continued conservative therapy with PPI therapy and bowel rest until swelling diminishes to the point that she is no longer obstructed. We discussed possible surgical intervention such as a gastrojejunostomy but I think with the degree of swelling that she currently has this would be high risk and there is a possibility that she may resolve or improve with non operative management. Overview of the endoscopic procedure was. Procedural risks including but not limited to hemorrhage, intestinal injury were discussed. Questions have been answered she is in agreement with this plan Esophagoduodenoscopy
--- NOTE | 2023-05-09 16:47 | PM.OP.EGD ---
Operative Date/Time/Diagnoses Date of procedure: 05/09/23 Time of procedure: 16:47 Pre-op diagnosis: Gastric outlet obstruction Post-op diagnosis: same Procedure & Clinicians Study performed: Esophagoduodenoscopy Same procedure as scheduled: Yes Indications: 77-year-old woman who presented to the hospital with nonbilious emesis and radiographic findings of gastric outlet obstruction. Surgeon: Mike Saldana Procedure Notes Procedure in detail: The history and physical was performed/updated and the patient is ASA class is 2. The procedure was discussed in detail with the patient. Potential risks complications including infection, bleeding, missed diagnosis, perforation, need for surgery, and were explained. Their questions were answered and informed consent was obtained. Patient placed in left lateral decubitus position. Time out was performed. Procedural sedation was administered by Anesthesia. A bite block was placed. the scope was inserted into the mouth and advanced through the esophagus and into the stomach. Gastritis was present flecks of clot and erythema, no distinct ulcer or masses. Biopsy of the stomach was performed with forceps. The pylorus was stenotic erythematous and edematous however it could be intubated. Scope was passed forward into the duodenum to the 2nd portion. Mild duodenitis no active hemorrhage or distinct ulcer..The scope was withdrawn into the esophagus the Z line was seen at 35 cm from the incisions. There was no Burns's esophagitis, esophageal masses or strictures. Stomach was desufflated and scope removed. Specimen(s): other (Gastric) Impression: Gastric outlet obstruction Post-procedure Plan for aftercare: Remove nasogastric tube. Small sips of water Anticipate there will be no need for gastroduodenal stent at this time nor surgical intervention. Disposition: Acute Care
--- NOTE | 2023-05-09 23:31 | PC.NURSE ---
Patient is alert and oriented but seems forgetful at times. Breath sounds CTA with RA sat of 94%. HRR. Denied nausea. Continues to take only ice chips and/or sips clear fluids. BT hyperactive but denies flatus. Is voiding per toilet and denied dysuria. Is assisted to bathroom with SBA. Able to move self in bed. Denied pain. Bilateral SCD's on at shift change but around 1999 patient found on bed on her hands and knees trying to disconnect them so removed per her request. Reminded to call staff for assistance with everything rather than attempting on her own. Denied pain. Fall risk score is low but due her earlier behavior bed alarm is now activated.
[2023-05-10] VITALS (9 sets, daily range): BP systolic 127–145; BP diastolic 51–64; PULSE 66–78; RESP 16–20; TEMP 36.1–37.6; O2SAT 94–100
[2023-05-10] MEDS: PANTOPRAZOLE 40 MG VIAL IV ×2 (07:58→20:24)
[2023-05-10] MEDS: HYDROMORPHONE 0.5 MG INJ IV (08:05)
[2023-05-10] MEDS: LEVOTHYROXINE 88 MCG TABLET PO (08:10)
--- NOTE | 2023-05-10 11:20 | P.PN_ITS ---
Subjective Subjective Interval history: 77 F admitted with gastric outlet obstruction. EGD without complete obstruction, now NG tube out, will trial clears later this morning. Restarted on statin and levothyroxine, will conitnue to hold lisinopril for now. Patient without nausea or abdominal pain this morning. Exam Vital Signs (past 8 hours): - 05/10/23 04:55 10 04:55 05/10/23 07:37 Temperature 97.0 F L 99.6 F Pulse Rate 72 76 Respiratory Rate 18 16 Blood Pressure 127/53 L 141/64 H Pulse Oximetry 95 95 96 Oxygen Delivery Method Room Air Oxygen Flow Rate 0 0 Oxygen Delivery Method Room Air Oxygen Flow Rate 0 Narrative Exam Narrative: General:? Patient is well developed and well nourished, in no distress at this time. NG in place HEENT:? Normocephalic, atraumatic, extraocular muscles intact, oral pharynx is clear and mucous membranes are moist. Chest:? Normal AP diameter and contour without kyphoscoliosis, no tachypnea, equal chest rise bilaterally. Lungs:? CTA b/l no wheezing rhonchi or rales. Cardio:?RRR no m/r/g. Abdomen: soft, mild epigastric distension, mild tenderness epigastrium. Musculoskeletal:? Muscle strength and tone are equal within normal limits, no deformity. Extremities: No edema or joint effusions. No cyanosis or clubbing. Skin:? Pale,? Warm to touch,dry and intact without rashes, ulcerations or petechiae.? Neuro:? Alert and orientated x3,? sensation to touch intact in all extremities, no gross deficits noted of cranial nerves. Psych:? Patient has a well-kept appearance, appropriate affect, mental status attitude thought context and judgment are appropriate for age. Objective Labs 05/09/23 02:55 05/09/23 02:55 [facility] Medical History Mumps Measles Chicken pox Skin cancer Hyperlipidemia Hypertension Hypothyroidism Scoliosis Lumbar back pain with radiculopathy affecting left lower extremity Trochanteric bursitis of left hip Surgical History H/O right wrist surgery H/O section Social History number of children: 2 household members: spouse Smoking Status: Never smoker alcohol intake: current substance use type: does not use Assessment & Plan Assessment & Plan narrative: 1. Gastric thickening with possible gastric outlet obstruction - NG placed in the ER with approx 450 cc fluid removed. - EGD with gastritis and duodenitis, able to pass scope. Suspect related to advil PM use for sleep. Continue IV PPI BID until tolerating more PO. - advance diet per surgery, currently on clears. 2. HTN - continue to hold home lisinopril, with normotension today. Can restart later if she becomes hypertensive. 3. HLD - can resume home statin today 4. Hypothyroid - resume home levothyroxine today. Code: full, surrogate is patient's spouse DVT: per primary I have utilized all available immediate resources to obtain, update, or review the patient's current medications. Medicine will continue to follow along with this patient. Additional history obtained via discussion with general surgeon.
--- NOTE | 2023-05-10 13:11 | PM.PN.1 ---
Subjective Subjective Date Patient Seen: 05/10/23 Time Patient Seen: 14:50 Interval history: 77-year-old woman admitted for gastric outlet obstruction. -Tolerated sips of clears no further nausea. -EGD demonstrated a stenotic pylorus however EGD scope was able to passed through into duodenum which demonstrated ulcers Exam Vital Signs (past 8 hours): - 05/10/23 07:37 Temperature 99.6 F Pulse Rate 76 Respiratory Rate 16 Blood Pressure 141/64 H Pulse Oximetry 96 Oxygen Delivery Method Room Air Oxygen Flow Rate 0 Narrative Exam Narrative: General adult woman alert oriented no acute distress Abdomen soft nontender nondistended Objective Labs 05/09/23 02:55 05/09/23 02:55 PFSH Medical History Mumps Measles Chicken pox Skin cancer Hyperlipidemia Hypertension Hypothyroidism Scoliosis Lumbar back pain with radiculopathy affecting left lower extremity Trochanteric bursitis of left hip Surgical History H/O right wrist surgery H/O section Social History number of children: 2 household members: spouse Smoking Status: Never smoker alcohol intake: current substance use type: does not use Assessment & Plan Assessment and plan (1) Gastric outlet obstruction: Status: Acute Plan: 77-year-old woman admitted for gastric outlet obstruction. EGD yesterday demonstrated a tight pylorus with ulcer disease however the EGD scope was able to pass into the duodenum. Tolerated sips of clears overnight will advance diet to clear liquid and if tolerates to full liquid. She may not be able to tolerate food prior to discharge but if she can maintain her nutrition with full liquids then she may be able to discharge home tomorrow with PPI and full liquids.
--- NOTE | 2023-05-10 13:14 | CM.DANOTE ---
Initial DCP Assessment Note Reviewed EMR and team rounds for pt's status and anticipated d/c home needs. Met with pt and her dtr at bedside, introduced self and role. Payor: James Jara. PCP:Dr. Osorio Attending: Dr. Desir Pt is a 77-year old F who presented at the ED with N/V and abdominal pain. She reported having developed nausea last Sunday evening, which persisted with worsening episodes of vomiting and pain until time of ER visit. NG was placed for gastric outlet obstruction. Surgery was consulted, EDG completed. Pt was put on bowel rest to determine if further surgical intervention was warranted. Today pt presents as alert, oriented, states pain is well controlled and her clear liquid diet is now being advanced. She does not anticipate any home support/resource needs, and really just wants to resume her camping trip with her spouse as soon as she can be medically cleared. DCP will continue to follow and assist with any further identified needs moving forward. Discharge Planning/Care Management CM Discharge Assessment Start: 05/10/23 11:47 Freq: Status: Active Protocol: Document 05/10/23 13:07 DPL (Rec: 05/10/23 13:14 DPL [id number]) Discharge Planning Assessment Assigned Serologist NIKOS Latif Advance Directives? Yes Advance Directives on File No History Provided By Patient,Medical Record Has Patient been admitted in last 30 No days? Prior Living Arrangements House Household Members spouse Type of transporation used prior to Drives own vehicle admit Independent with ADL's Yes Is patient alert and oriented? Yes Caregiver for Another No Comment N/A Comment N/A Comment Home w/family/spouse, no in- home services indicated at this time. Discharge Plan Home Transportation Arrangement Family Referrals Initiated None needed Whiteboard Updated in Patient Room with Yes name and ext. # of Serologist Review Status In Process Please Provide Date Initial DC 05/10/23 Assessment Was Performed
[2023-05-10 16:49] LABS: Appearance Urine UA CLOUDY; Bilirubin Urine UA NEGATIVE (NEGATIVE); Color Urine UA YELLOW; Glucose Urine UA NEGATIVE (Negative); Ketones Urine UA 2+ (NEGATIVE); Leukocyte Esterase Urine UA 3+ (NEGATIVE); Nitrite Urine UA POSITIVE (Negative); Occult Blood Urine UA 1+ (Negative); Protein Urine UA NEGATIVE (Negative); Specific Gravity Urine UA 1.025 (1.000-1.035)
[2023-05-10 16:54] LABS: pH Urine UA 5.5 (4.5-8.0)
[2023-05-10 16:57] LABS: Bacteria Urine Many (>30); Culture Indicated Urine Specimen Cultured; RBC Urine None Seen (0-5/HPF); Squamous Epithelial Cell Urine 5-10 /HPF (0-5/HPF); Transitional Epi Cells Urine 1-5/HPF (0-5/HPF); WBC Urine >100/HPF (0-5/HPF)
[2023-05-10] MEDS: MELATONIN 3 MG TABLET 6 MG PO (20:25)
[2023-05-10] MEDS: ATORVASTATIN 20 MG TABLET PO (20:25)
[2023-05-11 03:00] VITALS: BP 144/62; PULSE 61; RESP 17; TEMP 36.5; O2SAT 97
[2023-05-11] MEDS: LEVOTHYROXINE 88 MCG TABLET PO (05:50)
[2023-05-11 07:00] VITALS: O2SAT 97
[2023-05-11 08:00] VITALS: BP 164/68; PULSE 63; RESP 18; TEMP 37; O2SAT 98
[2023-05-11] MEDS: PANTOPRAZOLE 40 MG VIAL IV (08:09)
--- NOTE | 2023-05-11 08:10 | CM.DPC ---
DCP Cont. Reviewed chart for status updates. Pt ready to d/c home today. No further anticipated d/c needs identified at this time. Family to transport home.
--- NOTE | 2023-05-11 11:02 | PC.NURSE ---
Patient is A&OX4, SBP slightly elevated this a.m. She is tolerating full liquid diet well. She is cleared for discharge today with a 2 week follow up with MD Saldnaa. She verbalizes understanding of discharge plan. She reports normal BM yesterday, no pain and no nausea. She is instructed to poultry picker medications at pharmacy here and that staff can escort her. When her spouse arrives she changes clothes and ambulates out without waiting for staff.
--- NOTE | 2023-05-11 13:21 | PM.DS.1 ---
History of Present Illness History of Present Illness Chief complaint: vomiting, abd pain Narrative: Ms. Mcnair is a 77-year-old woman who presented to [facility] with several days of abdominal pain and nausea. She describes non bilious emesis upper abdominal pain and bloating. At admission afebrile vital signs within normal limits white blood cell count 14, creatinine 0.8 the remainder of her labs unremarkable. CT abdomen pelvis performed demonstrates gastric outlet obstruction. On my read of the film there is a significant amount of inflammation within the 1st portion of the duodenal with significant narrowing no free air or free fluid. For the past year or 2 she is been eating smaller amounts of food which she attributes to loss of taste, but no significant unintentional weight loss. No known history of peptic ulcer disease. Nasogastric tube was placed in the emergency department with nearly 2 L of gastric output. Discharge Providers Provider Date of admission: 05/09/23 08:27 Discharge Date: 05/11/23 Primary care physician: Jose A Osorio MD Discharge provider: Mike Saldana MD Summary Hospital Course Discharge Diagnosis: Gastric outlet obstruction Peptic ulcer Hospital Course: 77-year-old woman admitted to the hospital with a gastric outlet obstruction. She had been unable to tolerate solid food and presented with abdominal pain and emesis. CT abdomen pelvis demonstrated dilated stomach and the pylorus and duodenum were notably narrowed. There were no signs of ulcer perforation. She was taken to the endoscopy room underwent EGD, the scope could be passed through the pylorus and duodenum although tight. Ulcer disease without active hemorrhage was demonstrated within the pylorus and duodenum. Postprocedure she was able to tolerate liquids and has been maintained on PPI therapy. At discharge she is tolerating a full liquid diet, without abdominal pain and nausea. She can discharge home at this point on a full liquid diet as tolerated and will continue maximal PPI therapy. Will follow up next 2 weeks and surgical clinic. I suspect that her partial gastric outlet obstruction will resolve with adequate time and PPI therapy. Exam Vital Signs (past 8 hours): - 05/11/23 07:00 05/11/23 08:00 Temperature 98.6 F Pulse Rate 63 Respiratory Rate 18 Blood Pressure 164/68 H Pulse Oximetry 97 98 Oxygen Delivery Method Room Air Oxygen Flow Rate 0 Oxygen Delivery Method Room Air Oxygen Flow Rate 0 Narrative Exam Narrative: General adult woman alert oriented no acute distress Abdomen soft nontender nondistended Objective Labs 05/09/23 02:55 05/09/23 02:55 Labs: Laboratory Results - last 24 hr 05/10/23 16:20 Urine Color Yellow Urine Appearance Cloudy Urine pH 5.5 Ur Specific [place] 1.025 Urine Protein Negative Urine Glucose (UA) Negative Urine Ketones 2+ H Urine Occult Blood 1+ H Urine Nitrate Positive H Urine Bilirubin Negative Urine Urobilinogen 1.0 Ur Leukocyte Esterase 3+ H Urine RBC None seen Urine WBC >100/hpf H Ur Squamous Epith Cells 5-10 /hpf H Ur Transition Epith Cell 1-5/hpf Urine Bacteria Many (>30) H Ur Culture Indicated? Specimen cultured [facility] Medical History Mumps Measles Chicken pox Skin cancer Hyperlipidemia Hypertension Hypothyroidism Scoliosis Lumbar back pain with radiculopathy affecting left lower extremity Trochanteric bursitis of left hip Surgical History H/O right wrist surgery H/O section Social History number of children: 2 household members: spouse Smoking Status: Never smoker alcohol intake: current substance use type: does not use Discharge Plan Discharge Plan Patient Disposition: Home Provider Discharge Comment: Return to ER for worsening abdominal pain nausea and emesis Discharge orders & Medications Prescriptions: New omeprazole 40 mg capsule,delayed release(DR/EC) 40 mg PO BID Qty: 60 0RF Continued atorvastatin 20 mg tablet 20 mg PO BEDTIME Qty: 90 3RF lisinopril 5 mg tablet 5 mg PO DAILY Qty: 90 3RF levothyroxine 88 mcg tablet 88 mcg PO DAILY Qty: 90 3RF omega-3 fatty acids [Fish Oil Concentrate] 1 cap PO DAILY Follow up/Referrals: Jose A Osorio MD [Primary Care Provider] - Mike Saldana MD [Physician] - 2 Weeks Diet/Activity/Treatments Diet: Diet as Tolerated and Full Liquid Skin/Wound/Dressing Care Report to your healthcare provider any signs of infection, such as:: increased pain Visit Report/Discharge Packet Stand Alone Forms: Patient Portal/API, Stroke Signs & Symptoms Discharge Data Primary Care Provider: Jose A Osorio Discharges patient from system. Discharge Date/Time: 05/11/23 09:15
== END 2023-05-11 09:15 | disposition home or self-care (01) | DRG 382 ==
LOC: ED 02:41 → AC 08:44
PROVIDERS: Admitting Provider Surgery; Emergency Provider Emergency Medicine; PCP Family Medicine; Referring Provider Emergency Medicine; Visit Provider Surgery
PROC: 0DJ08ZZ Inspection of Upper Intestinal Tract, Via Natural or Artificial Opening Endoscopic (ICD-10-PCS; CPT 43235; principal; 2023-05-09 15:45)
DX: K31.1 Adult hypertrophic pyloric stenosis (principal); K25.9 Gastric ulcer, unspecified as acute or chronic, without hemorrhage or perforation; I10 Essential (primary) hypertension; E78.5 Hyperlipidemia, unspecified; E03.9 Hypothyroidism, unspecified
CPT/HCPCS: 36415; 43235; 71045; 74177; 80053; 81001; 82550; 83605; 83690; 83735; 84484; 85025; 87077; 87086; 87186; 96374; 96375; 96376; 99232; 99285; C9113; J1170; J2405; J2704; Q9967

== ENCOUNTER → 2024-04-21 09:03 | Outpatient (CLI) | payer MEDICARE, SELFPAY ==
[2023-05-09 10:21] VITALS: BMI 21.6
--- NOTE | 2024-04-21 09:05 | DI.RAD.S_ITS ---
PROCEDURE: XR KNEE LT 3V INDICATIONS: Left knee pain TECHNIQUE: 3 views of the knee were acquired. COMPARISON: None. FINDINGS: Bones: There are no osseous abnormalities. Joints: The tibialfemoral and patellofemoral joints show moderate degeneration. No effusions. Soft tissues: Normal IMPRESSION: Moderate degeneration.. Dictated by: Benji Ramey M.D. on 04/22/2024 at 7:58 Approved by: Benji Ramey M.D. on 04/22/2024 at 7:58
== END ==
PROVIDERS: PCP Family Medicine; Referring Provider Nurse Practitioner Family; Visit Provider Nurse Practitioner Family
DX: M17.12 Unilateral primary osteoarthritis, left knee (principal); M25.562 Pain in left knee
CPT/HCPCS: 73562

== ENCOUNTER → 2024-12-09 10:17 | Outpatient (CLI) | payer MEDICARE, SELFPAY ==
[2023-05-09 10:21] VITALS: BMI 21.6
[2024-12-09 11:07] LABS: Add Manual Diff / Slide Review NO; Basophils Absolute Auto 100 /uL (0-100); Basophils Percent Auto 1.1 % (0-2); Eosinophils Absolute Auto 100 /uL (0-450); Eosinophils Percent Auto 1.3 % (2-4); Lymphocytes Absolute Auto 1600 /uL (1100-4500); Lymphocytes Percent Auto 23.8 % (25-40); Mean Corpuscular HGB Conc 33.4 % (30-36); Mean Corpuscular Hemoglobin 34.1 PG (26-34); Mean Corpuscular Volume 101.9 fL (80-100); Monocytes Absolute Auto 700 /uL (0-900); Monocytes Percent Auto 9.8 % (3-14); Neutrophils Absolute Auto 4400 /uL (1500-7000); Platelet Count 280 X10^3/uL (150-400); Red Blood Cell Count 3.82 X10^6/uL (4.0-5.2); Red Cell Distribution Width 13.7 % (11.6-14.8); White Blood Cell Count 6.9 X10^3/uL (4.5-11.0)
[2024-12-09 11:24] LABS: Alanine Aminotransferase 52 IU/L (<35); Albumin 4.7 g/dL (3.5-5.0); Alkaline Phosphatase 98 U/L (38-126); Aspartate Aminotransferase 49 IU/L (14-36); BUN Creatinine Ratio 26.5 (6-22); Bilirubin Total 0.5 mg/dL (0.2-1.3); Blood Urea Nitrogen 22 mg/dL (7-17); Calcium 9.9 mg/dL (8.4-10.2); Carbon Dioxide 23 mmol/L (22-32); Chloride 103 mmol/L (98-107); Cholesterol 203 mg/dL (140-199); Estimated Glomerular Filt Rate > 60 mL/min (>60); Globulin 2.4 g/dL (1.7-4.1); Glucose 91 mg/dL (70-99); HDL Cholesterol 109 mg/dL (40-60); HEMOLYSIS < 15 (0-50); LDL Cholesterol Calculated 73 mg/dL (<100); Potassium 4.5 mmol/L (3.4-5.1); Sodium 138 mmol/L (137-145); Total Protein 7.1 g/dL (6.3-8.2); Triglycerides 103 mg/dL (35-150)
[2024-12-09 11:52] LABS: TSH w/ Reflex to FT4 0.82 uIU/mL (0.47-4.68)
[2024-12-11 00:07] LABS: Apolipoprotein B 67 mg/dL (<90)
== END ==
PROVIDERS: PCP Family Medicine; Referring Provider Family Medicine; Visit Provider Family Medicine
DX: Z00.00 Encounter for general adult medical examination without abnormal findings (principal); E78.5 Hyperlipidemia, unspecified; I10 Essential (primary) hypertension; E03.9 Hypothyroidism, unspecified
CPT/HCPCS: 36415; 80053; 80061; 82172; 82310; 83970; 84443; 85025

== ENCOUNTER 2024-12-18 08:31 | Emergency (ER) | payer MEDICARE, SELFPAY ==
[2023-05-09 10:21] VITALS: BMI 21.6
[2024-12-18] VITALS (9 sets, daily range): BP systolic 128–162; BP diastolic 56–70; PULSE 67–94; RESP 18–26; TEMP 36.7; O2SAT 97–99; BMI 22.3
--- NOTE | 2024-12-18 08:43 | EKG_ITS ---
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
--- NOTE | 2024-12-18 08:45 | ED_ITS ---
HPI - Neuro Symptoms/Deficit General Chief Complaint: Neuro Symptoms/Deficit Stated Complaint: SUDDEN ONSET OF MEMORY LOSS Time Seen by Provider: 12/18/24 08:35 History of Present Illness HPI Narrative: Patient had sudden onset 7:00 a.m. this morning of amnesia. Patient had told events and planning for her trip with her girlfriends to [place] for tomorrow. Patient returned back to her and could not recall any events of what she just said. She does remember getting up this morning doing her usual routine. At this time she remembers everything after this event. Denies denies any headache palpitations chest pain. No dizziness. No numbness tingling or weakness. Fast exam is negative. Does have history of hypertension. As well as hypercholesteremia. No prior history of stroke. Denies any recent stressors in life. At this time she is awake alert oriented x4. Related Data Previous Rx's Medication Instructions Recorded atorvastatin 20 mg tablet 20 mg PO BEDTIME #90 tabs 09/11/24 levothyroxine 88 mcg tablet 88 mcg PO DAILY #90 tabs 10/07/24 lisinopril 5 mg tablet 5 mg PO DAILY #90 tabs 10/07/24 Allergies Allergy/AdvReac Type Severity Reaction Status Date / Time adhesive [ADHESIVE] Allergy Unknown skin Verified 12/02/24 15:21 becomes red and itchy Sulfa (Sulfonamide Allergy Unknown rash,ithching, Verified 12/02/24 15:21 Antibiotics) redness [SULFA (SULFONAMIDE ANTIBIOTICS)] Review of Systems Review of Systems Narrative: GENERAL: Negative chills, fatigue, malaise, fever, sweats. HEENT: Negative sinus pain, ear pain, sore throat RESPIRATORY: Negative dyspnea, cough CARDIOVASCULAR: Negative chest pain, palpitations GASTROINTESTINAL: Negative vomiting, nausea, abdominal pain : Negative dysuria, frequency, hematuria MUSCULOSKELETAL: Negative muscle or bony pain SKIN: Negative rash, skin lesions NEUROLOGIC: Negative weakness, numbness, positive amnesia ROS Unobtainable: All systems reviewed & are unremarkable except as noted in HPI and below Patient History Medical History (Updated 12/18/24 @ 10:31 by Wagner Edwards MD) Insomnia Cardiac murmur Mumps Measles Chicken pox Skin cancer Hyperlipidemia Hypertension Hypothyroidism Scoliosis Lumbar back pain with radiculopathy affecting left lower extremity Trochanteric bursitis of left hip Surgical History H/O right wrist surgery H/O section Social History number of children: 2 household members: spouse alcohol intake: current substance use type: does not use alcohol intake frequency: 0-2 drinks per day Exam Narrative Exam Narrative: GENERAL: in no distress, not toxic not dyspneic HEAD: Normocephalic. EYES: Pupils equal round ENT: Mucous membranes moist. NECK: Trachea midline. CARDIOVASCULAR: Regular rate and rhythm RESPIRATORY: Clear to auscultation. Breath sounds equal bilaterally. No wheezes, rales, or rhonchi. GASTROINTESTINAL: Abdomen soft, non-tender EXTREMITIES: No gross deformities. BACK: No flank tenderness. NEURO: AOx4. Clear speech no facial droop light touch intact bilateral face hands and legs strong equal contracting manager negative pronator drift elevate each leg without drift SKIN: Warm and dry PSYCH: Not anxious, is cooperative Initial Vital Signs Initial Vital Signs: Vital Signs Pulse Rate 94 H 12/18/24 08:38 Blood Pressure 156/70 H 12/18/24 08:38 Pulse Oximetry 98 12/18/24 08:38 Scores NIH Stroke Scale Level of Conciousness: Alert, keenly responsive Ask month/age: Answers both questions correctly. Open/close eyes, close hand: Performs both tasks correctly Best gaze horizontal: Normal Visual simons: No visual loss Facial palsy: Normal symetrical movement Left arm drift: No drift for full 10 sec Right arm drift: No drift for full 10 sec Left leg drift: No drift for full 5 sec Right leg drift: No drift for full 5 sec Limb ataxia: Absent Sensory on face/arms/legs: Normal, no sensory loss Best language: No aphasia, normal Dysarthria: Normal Extinction or inattention: No abnormality Total NIH Stroke scale score: 0 Course Orders Ordered: Discontinued Medications Sodium Chloride (Normal Saline 0.9%) 500 mls @ 1,000 mls/hr IV BOLUS ONE Stop: 12/18/24 09:14 Last Infusion: 12/18/24 10:08 Dose: Infused Documented By: Admin: 12/18/24 09:22 Dose: 1,000 mls/hr Documented By: MARIOLA Vital Signs Vital signs: Vital Signs - 8 hr 12/18/24 08:38 12/18/24 08:38 12/18/24 08:51 Temperature 98.1 F Pulse Rate 94 H 94 H Respiratory Rate 18 Blood Pressure 156/70 H 156/70 H Pulse Oximetry 98 98 Oxygen Delivery Method Room Air 12/18/24 09:01 12/18/24 09:01 12/18/24 09:30 Temperature Pulse Rate 79 Respiratory Rate Blood Pressure 128/56 L 133/60 Pulse Oximetry 99 Oxygen Delivery Method 12/18/24 09:30 12/18/24 10:00 12/18/24 10:01 Temperature Pulse Rate 70 70 70 Respiratory Rate 26 H 22 Blood Pressure Pulse Oximetry 99 98 98 Oxygen Delivery Method 12/18/24 10:01 12/18/24 10:08 12/18/24 10:08 Temperature Pulse Rate 68 Respiratory Rate 19 Blood Pressure 150/65 H 162/70 H Pulse Oximetry 97 Oxygen Delivery Method MDM - Neuro Symptoms/Deficit Lab Data 12/18/24 08:45 12/18/24 08:45 Labs: Lab Results 12/18/24 Range/Units 08:45 WBC 8.4 (4.5-11.0) X10^3/uL RBC 3.92 L (4.0-5.2) X10^6/uL Hgb 13.4 (12.0-16.0) g/dL Hct 39.3 (36-46) % MCV 100.3 H (80-100) fL MCH 34.2 H (26-34) PG MCHC 34.0 (30-36) % RDW 13.8 (11.6-14.8) % Plt Count 280 (150-400) X10^3/uL Neut % (Auto) 70.6 (50-75) % Lymph % (Auto) 20.4 L (25-40) % Greer % (Auto) 7.1 (3-14) % Eos % (Auto) 1.2 L (2-4) % Baso % (Auto) 0.7 (0-2) % Neut # (Auto) 5900 (3085-8103) /uL Lymph # (Auto) 1700 (5607-3667) /uL Greer # (Auto) 600 (0-900) /uL Eos # (Auto) 100 (0-450) /uL Baso # (Auto) 100 (0-100) /uL PT 10.8 (9.4-12.5) SECONDS INR 1.0 (0.9-1.3) APTT 30 (25.1-36.5) SECONDS Sodium 138 (137-145) mmol/L Potassium 4.2 (3.4-5.1) mmol/L Chloride 105 (98-107) mmol/L Carbon Dioxide 24 (22-32) mmol/L BUN 20 H (7-17) mg/dL Creatinine 0.87 (0.52-1.04) mg/dL Estimated GFR > 60 (>60) mL/min BUN/Creatinine Ratio 23.0 H (6-22) Glucose 133 H (70-99) mg/dL Calcium 9.6 (8.4-10.2) mg/dL Total Bilirubin 0.7 (0.2-1.3) mg/dL AST 47 H (14-36) IU/L ALT 49 H (<35) IU/L Alkaline Phosphatase 95 (38-126) U/L Total Creatine Kinase 86 (30-135) U/L Troponin I < 0.012 (0.01-0.034) ng/mL Total Protein 7.4 (6.3-8.2) g/dL Albumin 4.7 (3.5-5.0) g/dL Globulin 2.7 (1.7-4.1) g/dL Albumin/Globulin Ratio 1.7 (1.0-2.8) Imaging Data CT scan - head: Radiologist's Impression: [address] [address] [address] Scan Report Signed Patient: Nicolle Mcnair V MR#: [id number] : 1945 Acct:[id number] Age/Sex: 79 / F Date of Service: 12/18/24 Loc: ED Accession Number: [id number] Procedure: CT Stroke Ordering Provider: Wagner Edwards MD PROCEDURE: CT STROKE INDICATIONS: Amnesia TECHNIQUE: Noncontrast 4.5 mm thick angled axial sections acquired from the foramen magnum to the vertex, with coronal reformats. For radiation dose reduction, the following was used: automated exposure control, adjustment of mA and/or kV according to patient size. COMPARISON: [facility], CT, CT HEAD/BRAIN WO CON, 02/16/2022, 20:20. FINDINGS: Image quality: Diagnostic. CSF spaces: Basal cisterns are patent. No extra-axial fluid collections. The ventricles are symmetric in size and shape. Brain: No acute intracranial hemorrhage or mass effect. There is cerebral volume loss, with resultant ventricular and sulcal prominence. There are periventricular and deep white matter chronic small vessel ischemic changes. There is intracranial internal carotid artery atherosclerosis. Skull and face: Calvarium and visualized facial bones appear intact, without suspicious lesions. Sinuses: Visualized sinuses and mastoids are clear. IMPRESSION: No acute intracranial pathology. Findings were discussed with the referring provider, Dr. Edwards, by telephone on 12/18/2024 at 8:59 AM. This study fulfills neurological imaging criteria for inclusion or exclusion of acute stroke therapies based on available published neurological guidelines. Approved by: Josep Brown M.D. on 12/18/2024 at 9:00 CTA - brain/neck: Radiologist's Impression: [address] [address] [address] Scan Report Signed Patient: Nicolle Mcnair V MR#: [id number] : 1945 Acct:[id number] Age/Sex: 79 / F Date of Service: 12/18/24 Loc: ED Accession Number: [id number] Procedure: CT angio head and neck Ordering Provider: Wagner Edwards MD PROCEDURE: CT ANGIO HEAD AND NECK INDICATIONS: Amnesia TECHNIQUE: After the administration of intravenous contrast, 1 mm thick sections acquired from the aortic arch through the [place] of [place]. 3-dimensional epwlcsn-daemvrzti-rzatyelbsd (MIP) and/or volume rendering reformats were acquired of the central intracranial vasculature and neck separately. For radiation dose reduction, the following was used: automated exposure control, adjustment of mA and/or kV according to patient size. COMPARISON: [facility], CT, CT STROKE, 12/18/2024, 8:52. FINDINGS: Image quality: Diagnostic. BRAIN: See separately dictated CT head report of 12/18/2024. HEAD CT ANGIOGRAPHY: Anterior circulation: Intracranial internal carotid arteries are normal in size and flow. The flow within the paired anterior cerebral arteries is normal and symmetric. The flow within the middle cerebral arteries is normal and symmetric. The anterior communicating artery is seen. No aneurysms are seen. Posterior circulation: Visualized portions of the vertebral arteries demonstrate normal caliber, and join to form a normal appearing basilar artery. Flow within the posterior cerebral arteries is normal and symmetric. No aneurysms are seen. NECK CT ANGIOGRAPHY: Carotid system: The great vessels demonstrate a conventional anatomy as they arise from the aortic arch. The origins of the common carotid arteries appear patent. The common carotid arteries demonstrate normal caliber and courses. The bifurcation regions are both widely patent. Calcifications are present at the origin of the internal carotid arteries bilaterally without hemodynamically significant stenosis. Posterior circulation: The origins of the vertebral arteries both appear widely patent. The more superior extracranial portions of both vertebral arteries also demonstrate normal courses and calibers. They join to form a normal appearing basilar artery. Soft tissues: Visualized neck soft tissues demonstrate no suspicious abnormalities. Bones: No suspicious bony lesions. Visualized cervical spine appears normally aligned. IMPRESSION: No significant intracranial arterial abnormality is seen. No significant abnormality is seen within the arteries of the neck. Any quantitative measurements of stenosis were performed using NASCET criteria. Dictated by: Chiquita Villanueva M.D. on 12/18/2024 at 9:18 Approved by: Chiquita Villanueva M.D. on 12/18/2024 at 9:23 [facility] Narrative Medical decision making narrative: Patient had sudden onset 7:00 a.m. this morning of amnesia. Patient had told events and planning for her trip with her girlfriends to [place] for tomorrow. Patient returned back to her and could not recall any events of what she just said. She does remember getting up this morning doing her usual routine. At this time she remembers everything after this event. Denies denies any headache palpitations chest pain. No dizziness. No numbness tingling or weakness. Fast exam is negative. Does have history of hypertension. As well as hypercholesteremia. No prior history of stroke. Denies any recent stressors in life. At this time she is awake alert oriented x4. Stroke protocol/CT ordered started After history and exam, CT head CT angiogram head and neck EKG CBC CMP PT INR PTT troponin urinalysis [facility] Medical records reviewed: No recent visit for this complaint Differential considered: Includes but not limited to TIA stroke transient global amnesia UTI anxiety Lab Test results independently reviewed as above. Pertinent findings: WBC 8.4 hemoglobin 13.4 sodium 138 potassium 4.2 BUN 20 creatinine 0.87 AST 47 ALT 49 troponin less than 0.012 Independently reviewed EKG sinus rhythm no ST elevation or depression Imaging studies independently reviewed: CT head CT angiogram head and neck no acute finding Consultations: 9:37 a.m.. Spoke with [facility] stroke, fellow, dr beavers, no medications or MRI at this time. He will review imaging studies and call us back. This would be unusual for transient global amnesia, no TNK at this time. Symptoms have resolved. 9:[address] beavers again, he does not feel this is a TIA. Does not feel like this is TGA either, however, symptoms are nonspecific at this time. No new medications indicated at this time. Not need to start aspirin at this time. Would benefit for outpatient MRI and EEG. No admission indicated at this time. Re-evaluations: 10:30 a.m.. Spoke with patient results and my discussion with neurology services. At this time uncertain source of her amnesia but not TGA or stroke or TIA. They do feel comfortable follow up with primary care for outpatient MRI of the brain and EEG. Return precautions reviewed. No new symptoms during course of stay. They desire discharge home Discussion: Appropriate for discharge home. Exam is reassuring. Return precautions reviewed with patient and . I did review with neurology services well. Appropriate for outpatient follow up band MRI and EEG. They desire discharge home. Return precautions reviewed Diagnosis: Amnesia Discharge Plan Departure Patient Disposition: Home Clinical Impression: Other amnesia Instructions: DI for Amnesia Activity Restrictions/Additional Instructions: Please call your family doctor today to schedule outpatient MRI of the brain and EEG. Neurology services was contacted today for your symptoms. I am glad you are feeling better. Exam and laboratory studies and imaging studies are reassuring here today. You will need to continue evaluation and follow up with your family doctor. No new medications or indicated this time. Return if worse if any questions or concerns. You may continue home medications. Prescriptions: No Action atorvastatin 20 mg tablet 20 mg PO BEDTIME Qty: 90 0RF lisinopril 5 mg tablet 5 mg PO DAILY Qty: 90 1RF levothyroxine 88 mcg tablet 88 mcg PO DAILY Qty: 90 1RF Referrals: Jose A Osorio MD [Primary Care Provider] - Stand Alone Forms: Patient Portal/API/Survey
[2024-12-18 08:57] LABS: Add Manual Diff / Slide Review NO; Basophils Absolute Auto 100 /uL (0-100); Basophils Percent Auto 0.7 % (0-2); Eosinophils Absolute Auto 100 /uL (0-450); Eosinophils Percent Auto 1.2 % (2-4); Hematocrit 39.3 % (36-46); Hemoglobin 13.4 g/dL (12.0-16.0); Lymphocytes Absolute Auto 1700 /uL (1100-4500); Lymphocytes Percent Auto 20.4 % (25-40); Mean Corpuscular Hemoglobin 34.2 PG (26-34); Mean Corpuscular Volume 100.3 fL (80-100); Monocytes Absolute Auto 600 /uL (0-900); Monocytes Percent Auto 7.1 % (3-14); Neutrophils Absolute Auto 5900 /uL (1500-7000); Neutrophils Percent Auto 70.6 % (50-75); Platelet Count 280 X10^3/uL (150-400); Red Blood Cell Count 3.92 X10^6/uL (4.0-5.2); Red Cell Distribution Width 13.8 % (11.6-14.8); White Blood Cell Count 8.4 X10^3/uL (4.5-11.0)
[2024-12-18 09:05] LABS: Prothrombin Time 10.8 SECONDS (9.4-12.5)
[2024-12-18 09:08] LABS: PTT Partial Thromboplastin Tim 30 SECONDS (25.1-36.5)
[2024-12-18 09:09] LABS: Alanine Aminotransferase 49 IU/L (<35); Albumin 4.7 g/dL (3.5-5.0); Albumin Globulin Ratio 1.7 (1.0-2.8); Alkaline Phosphatase 95 U/L (38-126); Aspartate Aminotransferase 47 IU/L (14-36); Bilirubin Total 0.7 mg/dL (0.2-1.3); Blood Urea Nitrogen 20 mg/dL (7-17); Calcium 9.6 mg/dL (8.4-10.2); Carbon Dioxide 24 mmol/L (22-32); Chloride 105 mmol/L (98-107); Creatine Kinase 86 U/L (30-135); Estimated Glomerular Filt Rate > 60 mL/min (>60); Globulin 2.7 g/dL (1.7-4.1); Glucose 133 mg/dL (70-99); HEMOLYSIS < 15 (0-50); Potassium 4.2 mmol/L (3.4-5.1); Sodium 138 mmol/L (137-145); Total Protein 7.4 g/dL (6.3-8.2)
[2024-12-18 09:20] LABS: Troponin I < 0.012 ng/mL (0.01-0.034)
[2024-12-18] MEDS: SODIUM CHLORIDE 0.9% 500 ML 1000 ML IV (09:22)
== END 2024-12-18 10:37 | disposition home or self-care (01) ==
PROVIDERS: Emergency Provider Emergency Medicine; PCP Family Medicine
DX: R41.3 Other amnesia (principal); R29.700 NIHSS score 0
CPT/HCPCS: 36415; 70450; 70496; 70498; 80053; 82550; 84484; 85025; 85610; 85730; 93005; 96360; 99284; Q9967

== ENCOUNTER → 2024-12-25 11:15 | Outpatient (CLI) | payer MEDICARE, SELFPAY ==
[2023-05-09 10:21] VITALS: BMI 21.6
--- NOTE | 2024-12-25 11:16 | DI.MRI.S_ITS ---
PROCEDURE: MR HEAD/BRAIN WO/W CON INDICATIONS: Acute amnesia TECHNIQUE: Noncontrast axial T1 spin echo, axial T2 fast spin echo, sagittal and axial FLAIR, coronal T2 fast spin echo, axial gradient echo, axial diffusion and ADC through the brain. After the administration of contrast, axial and coronal and sagittal T1 spin echo with fat saturation through the brain. COMPARISON: None. FINDINGS: Image quality: Excellent. CSF spaces: Basal cisterns are patent. No extra-axial fluid collections. Ventricles are normal in size and shape. Brain: No midline shift. No intracranial bleeds or masses. No abnormal intracranial enhancement. There is cerebral volume loss for age. There is periventricular white matter chronic small vessel ischemic change. The brainstem appears normal. Diffusion-weighted images demonstrate no acute infarct. No chronic ischemic insults. Normal intravascular flow voids are present. Skull and face: Calvarial marrow is normal in signal. Orbits appear normal. Note is made of bilateral lens replacements. Sinuses: Sinuses and mastoids appear clear. IMPRESSION: No findings of acute or subacute infarction can be seen. Note is made of age-appropriate brain parenchymal volume loss and chronic small vessel ischemic changes. No masses or abnormal enhancement can be seen. Dictated by: Hill Sherman M.D. on 12/25/2024 at 11:29 Approved by: Hill Sherman M.D. on 12/25/2024 at 11:31
== END ==
PROVIDERS: PCP Family Medicine; Referring Provider Family Medicine; Visit Provider Family Medicine
DX: R41.3 Other amnesia (principal)
CPT/HCPCS: 70553; A9579

== ENCOUNTER → 2025-01-01 08:15 | Outpatient (CLI) | payer MEDICARE, SELFPAY ==
[2023-05-09 10:21] VITALS: BMI 21.6
[2025-01-01 08:53] LABS: Add Manual Diff / Slide Review NO; Basophils Absolute Auto 100 /uL (0-100); Basophils Percent Auto 1.5 % (0-2); Eosinophils Absolute Auto 100 /uL (0-450); Eosinophils Percent Auto 2.9 % (2-4); Hematocrit 39.2 % (36-46); Hemoglobin 13.3 g/dL (12.0-16.0); Lymphocytes Absolute Auto 1300 /uL (1100-4500); Lymphocytes Percent Auto 25.6 % (25-40); Mean Corpuscular Hemoglobin 34.5 PG (26-34); Mean Corpuscular Volume 101.5 fL (80-100); Monocytes Absolute Auto 600 /uL (0-900); Monocytes Percent Auto 12.2 % (3-14); Neutrophils Absolute Auto 3000 /uL (1500-7000); Neutrophils Percent Auto 57.8 % (50-75); Platelet Count 296 X10^3/uL (150-400); Red Blood Cell Count 3.87 X10^6/uL (4.0-5.2); Red Cell Distribution Width 13.6 % (11.6-14.8); White Blood Cell Count 5.1 X10^3/uL (4.5-11.0)
[2025-01-01 09:15] LABS: Alanine Aminotransferase 32 IU/L (<35); Albumin 4.7 g/dL (3.5-5.0); Alkaline Phosphatase 80 U/L (38-126); Aspartate Aminotransferase 33 IU/L (14-36); BUN Creatinine Ratio 21.4 (6-22); Bilirubin Total 0.7 mg/dL (0.2-1.3); Blood Urea Nitrogen 18 mg/dL (7-17); Carbon Dioxide 27 mmol/L (22-32); Chloride 104 mmol/L (98-107); Estimated Glomerular Filt Rate > 60 mL/min (>60); Globulin 2.4 g/dL (1.7-4.1); Glucose 100 mg/dL (70-99); HEMOLYSIS < 15 (0-50); Potassium 4.6 mmol/L (3.4-5.1); Sodium 139 mmol/L (137-145); Total Protein 7.1 g/dL (6.3-8.2)
[2025-01-01 10:18] LABS: Folate > 20.0 ng/mL (2.76-20.0); Vitamin B12 483 pg/mL (239-931)
== END ==
PROVIDERS: PCP Family Medicine; Referring Provider Family Medicine; Visit Provider Family Medicine
DX: R41.3 Other amnesia (principal); E03.9 Hypothyroidism, unspecified; I10 Essential (primary) hypertension; R79.89 Other specified abnormal findings of blood chemistry
CPT/HCPCS: 36415; 80053; 82607; 82746; 85025